=== PATIENT | male | born 1965 | race African-American/Black ===

== ENCOUNTER 2017-03-13 19:59 | Inpatient (IN) | payer SELFPAY ==
[~2017-03-13 19:59] MED LIST: ISOVUE-370 76%-LOCM 1 ML ONE
[2017-03-13 20:27] LABS: #Basophils 0.1 thou/uL (0.0-0.2); #Eosinphils 0.3 thou/uL (0.0-0.7); #Lymphocytes 1.8 thou/uL (1.20-3.40); #Monocytes 0.5 thou/uL (0.11-0.59); #Neutrophils 4.3 thou/uL (1.40-6.50); %Basophils 1.3 % (0.0-1.0); %Eosinophils 4.4 % (0.0-10.0); %Lymphocytes 25.5 % (21.0-51.0); %Neutrophils 61.8 % (42.0-75.0); Hemoglobin 14.4 g/dL (14.0-18.0); Mean Corpuscular Hemoglobin 29.1 pg (27.0-31.0); Mean Corpuscular Volume 90.9 fl (80.0-94.0); Mean Platelet Volume 8.8 fL (7.4-10.4); Platelet Count 212 thou/uL (130-400); RBC Distribution Width 13.2 % (11.5-14.5); Red Blood Cell (RBC) Count 4.95 mill/uL (4.70-6.10)
[2017-03-13 20:33] LABS: PTT 27.5 SEC (22.9-36.1); Prothrombin Time 13.6 SEC (12.0-14.7)
[2017-03-13 20:39] LABS: ALT (SGPT) 16 U/L (8-55); AST (SGOT) 26 U/L (5-34); Albumin 3.5 g/dL (3.5-5.0); Alkaline Phosphatase 90 U/L (40-150); Anion Gap 16 mmol/L (10-20); BUN (Urea Nitrogen) 16 mg/dL (8.9-20.6); Bilirubin, Total 0.3 mg/dL (0.2-1.2); Calc. Creatinine Clearance 0 mL/min (70-130); Carbon Dioxide 19 mmol/L (22-29); Chloride 103 mmol/L (98-107); Estimated GFR-MDRD 63; Globulin 3.6 g/dL (2.4-3.5); Glucose 211 mg/dL (70-105); Potassium 3.8 mmol/L (3.5-5.1); Protein, Total 7.1 g/dL (6.0-8.3); Sodium 134 mmol/L (136-145)
[2017-03-13 20:45] LABS: CKMB 6.7 ng/mL (0-6.6)
[2017-03-13 21:06] LABS: Magnesium 2.2 mg/dL (1.6-2.6)
[2017-03-13 21:20] LABS: Bilirubin Negative (Negative); Blood, Urine Moderate (Negative); Clarity CLEAR (Clear); Glucose, Urine (Dipstick) 500 mg/dL (Negative); Leukocyte Negative (Negative); Nitrite Negative (Negative); Protein, Urine (Dipstick) 300 mg/dL (Neg-Trace); Specific Gravity, Urine 1.026 (1.002-1.036); pH, Urine 6.5 (5.0-9.0)
[2017-03-13 21:22] LABS: Bacteria/HPF None Seen HPF (None Seen); Hyaline Casts/LPF 0-3 HYALINE CAST LPF (0-3 Hyaline); Pathc Cast-AUWi Flag 0.27 (0-2.49); Squamous Epithelial None Seen HPF (0-3); WBC/HPF 0-3 HPF (0-3)
--- NOTE | 2017-03-13 21:27 | RAD ---
PORTABLE CHEST 03/13/17 PROVIDED CLINICAL HISTORY: Chest pain. FINDINGS: No comparisons. Evaluation is limited by patient body habitus. The cardiac silhouette appears enlarge d. No focal consolidation, pleural fluid or pneumothorax apparent. IMPRESSION: Cardiomegaly without evidence for an acute cardiopulmonary process. POS: CET
[2017-03-13] MEDS ORDERED: Labetalol HCl 100 MG/20 ML VIAL ONE (21:28)
[2017-03-13 21:32] LABS: Amphetamine Not Detected (NotDetected); Barbiturates Screen Not Detected (NotDetected); Benzodiazepine Screen Not Detected (NotDetected); Cocaine Metabolite Screen Not Detected (NotDetected); Medtox Control Line Valid? VALID (VALID); Medtox Reader # READER 4; Methadone Not Detected (NotDetected); Methamphetamine Not Detected (NotDetected); Opiate Screen Not Detected (NotDetected); Oxycodone Screen Not Detected (NotDetected); Phencyclidine (PCP) Not Detected (NotDetected); THC/Cannabinoid Screen Not Detected (NotDetected); Tricyclic Screen Not Detected (NotDetected)
--- NOTE | 2017-03-13 21:50 | CT ---
CT BRAIN 03/13/17 PROVIDED CLINICAL HISTORY: Left sided facial droop and left sided weakness. FINDINGS: The ventricular system appears normal in size and morphology. There is no evidence for intracranial h emorrhage or mass effect. There is an areas of diminished attenuation involving the left cerebellar h emisphere just lateral of midline posteriorly which could reflect artifact related to beam hardening versus an area of age indeterminate ischemia. The extracranial soft tissues and osseous structures ap pear unremarkable. IMPRESSION: 1. No evidence for intracranial hemorrhage or mass effect. 2. Possible age indeterminate infarction involving the left cerebellar hemisphere. Findings were communicated to Dr. Flores via telephone at 8:13 p.m., 03/13/17. Code CR POS: CET
[2017-03-13] MEDS ORDERED: Fentanyl 100 MCG/2 ML VIAL ONE (21:55)
--- NOTE | 2017-03-13 22:43 | CT ---
CT ANGIOGRAM HEAD WITH IV CONTRAST AND PERFUSION WITH 3D MIP RECONSTRUCTIONS CT ANGIOGRAM OF THE NECK WITH IV CONTRAST WITH 3D MIP RECONSTRUCTIONS 03/13/17 FINDINGS: Evaluation is limited due to quantum model (image noise) related to patient body habitus through the upper aspects of the chest and great vessel origins. There is a common origin of the innominate and l eft common carotid arteries. The great vessels appear otherwise unremarkable. The vertebral arteries appear patent throughout their course. There is no evidence for a significant extracranial carotid st enosis. Atherosclerotic plaque is noted involving the petrous portions of the internal carotid arteri es bilaterally without evidence for a focal high grade stenosis. The anterior cerebral, posterior cer ebral, and middle cerebral arteries demonstrate a normal CT angiographic appearance, as does the basi lar artery. The left PICA artery appears diminutive and its distal aspects are difficult to visualize which could be on the basis of occlusion or its small size. The right PICA appears normally opacifie d. There is patchy diminished attenuation again seen involving a portion of the left cerebellar hemis phere compatible with age indeterminate infarction. The perfusion images are limited. There is no gross evidence for ischemia though the examination is e ssentially nondiagnostic for such. IMPRESSION: 1. Findings compatible with age indeterminate left PICA distribution infarction. Consider MRI if indicated. 2. No evidence for focal vessel stenosis, branch occlusion or aneurysm involving the intracrania l vessels and no evidence for significant internal carotid artery stenosis involving the extracranial portions of each internal carotid artery. 3. Nondiagnostic perfusion study. Findings are communicated to Dr. Flores in the Emergency Dep artment at 8?34 p.m., 03/13/17. Code CR POS: CET
[2017-03-13] MEDS ORDERED: Enoxaparin Sodium 100 MG/ML SYRINGE ONE (22:55)
[2017-03-13] MEDS ORDERED: Enoxaparin Sodium 40 MG/0.4 ML SYRINGE ONE (22:55)
[2017-03-13 23:57] LABS: Troponin I 0.286 ng/mL (< 0.028)
[2017-03-14] MEDS ORDERED: Ondansetron ODT 4 MG TAB SL PRN (00:46)
[2017-03-14] MEDS ORDERED: Ondansetron HCl/PF 4 MG/2 ML Vial IVP PRN (00:46)
[2017-03-14 01:33] VITALS: BMI 42.0
[2017-03-14 03:05] LABS: Troponin I 0.314 ng/mL (< 0.028)
[2017-03-14] MEDS: Aspirin 81 mg Enteric Coated Tablet PO SCH (08:50)
[2017-03-14] MEDS: Heparin 5,000 UNITS/ML VIAL SC SCH ×2 (08:50→20:37)
[2017-03-14 08:56] LABS: Troponin I 0.331 ng/mL (< 0.028)
[2017-03-14] MEDS ORDERED: FLU VACC QS2017-18 36 mo. & older 0.5 ML SYRINGE IM ONE ×2 (09:00→21:00)
[2017-03-14] MEDS ORDERED: Nitroglycerin 0.4 MG TAB (25 Tab Bottle) PO PRN (09:55)
[2017-03-14] MEDS ORDERED: Morphine 5 mg/5 ml in 0.9% NaCl/PF SYRINGE SLOW IVP PRN (09:56)
[2017-03-14] MEDS: Morphine 5 MG/ML SYRINGE SLOW IVP PRN ×2 (11:34→18:19)
[2017-03-14] MEDS ORDERED: hydrALAZINE 20 MG/ML VIAL SLOW IVP PRN (13:10)
[2017-03-14 14:43] LABS: Troponin I 0.271 ng/mL (< 0.028)
--- NOTE | 2017-03-14 19:24 | HP ---
PRIMARY CARE PHYSICIAN: None. PRESENTING COMPLAINT: Left-sided weakness. HISTORY OF PRESENT ILLNESS: A 51-year-old male with an unclear medical history who presented to the emergency room with a 1 day history of left-sided weakness. Patient reports symptoms started yesterd ay around 7:00 p.m. after he drank 24 hours, can of beer and he noticed he was unable to move his lef t side properly resulting in a fall. He also noticed some slurred speech, but denies any loss of con sciousness or facial droop. He has not had similar episodes in the past. In addition, he has had in termittent chest pain for the past 3-4 days, described as a pressure-like, substernal, radiating to t he left shoulder. He denies palpitations, nausea or vomiting, but admits to some shortness of breath . PAST SURGICAL HISTORY: None. HOME MEDICATIONS: None. ALLERGIES: No known drug allergies. FAMILY HISTORY: No family history of sudden cardiac , heart disease. SOCIAL HISTORY: He denies smoking and drinks alcohol occasionally. REVIEW OF SYSTEMS: HEENT: Negative. RESPIRATORY: Positive shortness of breath. Negative for cough, sputum production, nasal congestion. CARDIOVASCULAR: Per HPI. ABDOMEN: Negative. GENITOURINARY: Denies dysuria, urgency, hematuria or frequency. HEMATOLOGY: Negative. SKIN: Denies rashes. NEUROLOGY: Per HPI. PSYCHIATRIC: Denies depressed mood, suicidal or homicidal ideations. PHYSICAL EXAMINATION: VITAL SIGNS: Blood pressure 188/127, pulse 110, respirations 22, temperature 98.9 degree Fahrenheit. HEENT: Not in acute distress. RESPIRATORY: Chest, clear to auscultation bilaterally. No wheezes or rales. CARDIOVASCULAR: S1 and S2 only. Regular rate and rhythm. No murmurs, rubs, or gallops. ABDOMEN: Bowel sounds present. No tenderness to palpation. MUSCULOSKELETAL: Strength 4/5 on the left upper and lower extremities; 5/5 on the right extremities. NEUROLOGIC: Alert and well oriented. No facial droop, decreased tone left extremities with pronator drift. A 4/5 strength in left upper and lower extremities; 5/5 in the right extremities. SKIN: No rashes. LABORATORY DATA: Troponin 0.286 on arrival, increasing to 0.331 and down trended to 0.271. BNP 403. 9, magnesium 2.2. CBC unremarkable. CMP largely unremarkable. IMAGING: Chest x-ray showed cardiomegaly without evidence of acute cardiopulmonary process. CTA ang iography: Findings compatible with age indeterminate left PICA distribution infarction. No evidence of focal vessel stenosis, occlusion, or aneurysm. Brain CT: No evidence of intracranial hemorrhage or mass effect. Possible age indeterminate infarction involving left cerebellar hemisphere. EKG, n o signs of acute ischemia. ASSESSMENT AND PLAN: 1. Left hemiparesis/acute ischemic stroke. The patient presented with left hemiparesis with primary concern being for an acute ischemic stroke. Last known normal was over 12 hours ago, so outside the window for possible TPA. We will allow for permissive hypertension, regular neuro checks, get a lip id profile, TSH, ESR and CRP. 2. I will also consult Neurology and allow for permissive hypertension. 3. Type 2 non-ST elevation myocardial infarction: He initially presented with chest pain and elevat ed troponin, but now trending downwards. Therefore, I will not start anticoagulation, but monitor tr oponin. We will also place p.r.n. nitroglycerin sublingually and IV morphine for chest pain. Cardio logy will be consulted and he will be monitored on telemetry. 4. Code status: FULL CODE. In addition, for his ischemic stroke, the patient will be placed on daily aspirin, as well as statin; also with p.r.n. labetalol for diastolic blood pressure greater than 120. The Stroke team will also be consulted and he will be placed on PT/OT evaluation/treatment as well as a TTE.
[2017-03-14] MEDS: Atorvastatin Calcium 40 MG TAB PO SCH (20:37)
[2017-03-14 21:14] LABS: Troponin I 0.308 ng/mL (< 0.028)
[2017-03-14] MEDS ORDERED: Acetaminophen 500 MG TAB PO SCH (21:45)
[2017-03-14] MEDS: Labetalol HCl 100 MG/20 ML VIAL SLOW IVP PRN (21:58)
--- NOTE | 2017-03-15 00:40 | CON ---
DATE OF CONSULTATION: 03/14/2017 REFERRING PHYSICIAN: Dr. Anita Elias. REASON FOR CONSULTATION: Left-sided weakness. HISTORY OF PRESENT ILLNESS: Mr. Bolden is a pleasant 51-year-old -[place] male who has bee n concerned for evaluation of left-sided weakness. History is obtained from patient, who is a good h istorian. He reports that on Sunday afternoon, he noticed the numbness and tingling sensation in lef t lower extremity. Then few hours later, he started noticing numbness and tingling in the left upper extremity. He also noticed that he was having difficulty with the lifting his leg. On next day, he noticed that he was having difficulty with lifting his arm. He was having difficulty with walking. He was also having somewhat slurred speech and blurred vision, which prompted him to present to the [facility] on today, as his symptoms were not improving. He reports that his symptoms are somewhat better compared to yesterday. He denies any headache, chest pain, palpitation, nausea, vomiting, fever, or chills. PAST MEDICAL HISTORY: Significant for hypertension, history of stroke. PAST SURGICAL HISTORY: None. SOCIAL HISTORY: He denies smoking. He does drink alcohol on occasions. He denies illicit drug use. CURRENT MEDICATIONS: Please review MAR. ALLERGIES: No known drug allergies. FAMILY HISTORY: Noncontributory. REVIEW OF SYSTEMS: As mentioned in the HPI, otherwise negative. PHYSICAL EXAMINATION: VITAL SIGNS: Blood pressure 193/127, pulse of 106, temperature of 98.9, respirations of 16, O2 sats of 97% on room air. GENERAL: Well-developed, well-nourished -[place] male in no apparent distress. RESPIRATORY: Clear to auscultation bilaterally. CARDIOVASCULAR: Regular rate and rhythm. NEUROLOGIC: Mental status: Patient is awake, alert, oriented x3. Speech and language mildly dysart hric speech. Cranial nerves: Pupils are 3 mm and reactive. Visual crandall are intact. Extraocular muscles movements are intact. No nystagmus is noted. Face appears symmetric. Tongue and uvula are midline. Motor exam showed normal tone and bulk with 5/5 strength in right upper and right lower ext remities. His strength in the left upper and left lower extremities is 4/5. He does have a pronator drift on the left upper extremity. Sensory: Sensation appears intact. Deep tendon reflexes 1+ ref justin in both upper and lower extremities. Babinski: Plantar responses flexion bilaterally. Coordina tion intact to [id number] tapping bilaterally. LABORATORY DATA: Reviewed, which included CBC, CMP, troponin, BNP, urinalysis, and urine drug screen with plasma alcohol level, which is significant for sodium of 134, troponin of 0.26 on admission. C K-MB of 6.7, glucose of 211. Serum plasma alcohol level was 100. IMAGING STUDIES: CT head without contrast was reviewed, which showed hypodensity involving the left posterior cerebellar region suggestive of subacute infarct. IMPRESSION: 1. Subacute left cerebellar ischemic infarct. 2. Malignant hypertension. 3. Alcohol abuse. ASSESSMENT AND PLAN: Mr. Bolden is a pleasant 51-year-old -[place] male who presented with left-sided weakness and slurred speech. On exam, he does have mild dysarthria along with left-sided weakness. His CT scan does show hypodensity in the left cerebellar region. At this time, I will re commend obtaining MRI brain without contrast. I would recommend starting on aspirin 325 mg daily for secondary stroke prevention. He will also benefit from Lipitor 40 mg at bedtime. Continue PT, OT, speech therapy. Thank you for your consultation.
[2017-03-15 05:59] LABS: #Eosinphils 0.3 thou/uL (0.0-0.7); #Lymphocytes 1.6 thou/uL (1.20-3.40); #Monocytes 0.5 thou/uL (0.11-0.59); #Neutrophils 3.2 thou/uL (1.40-6.50); %Basophils 0.7 % (0.0-1.0); %Eosinophils 5.9 % (0.0-10.0); %Lymphocytes 28.2 % (21.0-51.0); %Monocytes 8.6 % (0.0-10.0); %Neutrophils 56.6 % (42.0-75.0); Hemoglobin 13.9 g/dL (14.0-18.0); Mean Corpuscular HGB CONC 32.5 g/dL (32.0-36.0); Mean Corpuscular Hemoglobin 29.3 pg (27.0-31.0); Mean Corpuscular Volume 89.9 fl (80.0-94.0); Mean Platelet Volume 9.2 fL (7.4-10.4); Platelet Count 203 thou/uL (130-400); RBC Distribution Width 13.3 % (11.5-14.5); Red Blood Cell (RBC) Count 4.76 mill/uL (4.70-6.10); White Blood Cell (WBC) Count 5.6 thou/uL (4.8-10.8)
[2017-03-15 06:01] LABS: PTT 31.2 SEC (22.9-36.1); Prothrombin Time 13.5 SEC (12.0-14.7)
[2017-03-15 06:06] LABS: Anion Gap 14 mmol/L (10-20); BUN (Urea Nitrogen) 15 mg/dL (8.9-20.6); Calc. Creatinine Clearance 140 mL/min (70-130); Calcium 9.2 mg/dL (7.8-10.44); Carbon Dioxide 23 mmol/L (22-29); Cardiac Risk 7.7 (Less than 4.5); Chloride 104 mmol/L (98-107); Cholesterol 253 mg/dl (< 200 Desired); Estimated GFR-MDRD 76; Glucose 217 mg/dL (70-105); HDL Cholesterol 33 mg/dL (>60 Neg Risk); LDL Cholesterol, Calculated 184 mg/dL; Potassium 3.8 mmol/L (3.5-5.1); Sodium 137 mmol/L (136-145); Triglycerides 180 mg/dL (Less than 150)
--- NOTE | 2017-03-15 07:39 | CON ---
DATE OF CONSULTATION: 03/14/2017 REASON FOR CONSULTATION: Elevated troponin. PRIMARY PROVIDER: Dr. Jimy Brunner HISTORY OF PRESENT ILLNESS: This is a 51-year-old gentleman who I have seen and evaluated in the [facility]. He underwent coronary angiography last year and was not found to have significant flow-limiting d isease. He had ectatic vessel. He recently presented with left-sided weakness and speech impediment . He was diagnosed with a CVA. His blood pressure was markedly elevated with poor control. PAST MEDICAL HISTORY: Hypertension, mild CAD. ALLERGIES: None. HOME MEDICATIONS: None. SOCIAL HISTORY: No current tobacco or alcohol use. REVIEW OF SYSTEMS: Ten point review of systems is reviewed and as above, otherwise negative. PHYSICAL EXAMINATION: VITAL SIGNS: Blood pressure 162/101, pulse 80, temperature 98.5. GENERAL: Patient is a pleasant male who is in no acute distress. The patient appears his stated age. NEUROLOGIC: Left-sided weakness and mild speech impediment. HEENT: Sclerae without icterus. Mouth has moist mucous membranes with normal pallor. NECK: No JVD. Carotid upstroke brisk. No bruits bilaterally. LUNGS: Clear to auscultation with unlabored respirations. BACK: No scoliosis or kyphosis. CARDIAC: Regular rate and rhythm with normal S1 and S2. No S3 or S4 noted. No significant rubs, mur murs, thrills, or gallops noted throughout the precordium. PMI is not displaced. There is no parast ernal heave. ABDOMEN: Soft, nontender, nondistended. No peritoneal signs present. No hepatosplenomegaly. No abn ormal striae. EXTREMITIES: 2+ femoral and 2+ dorsalis pedis pulses. No cyanosis, clubbing, or edema. SKIN: No gross abnormalities. PERTINENT LABS: Hemoglobin 13.9. Peak troponin 0.3, creatinine 1.2. IMPRESSION: 1. Elevated troponin. 2. Recent cerebrovascular accident. 3. Mild coronary artery disease. RECOMMENDATIONS: Elevated troponin secondary to recent a CVA. Would recommend conservative approach . Would recommend aggressive blood pressure management. This is likely the cause of his recent CVA. His current echo is not available. Mr. Bolden has 2 charts with echo findings dated 02/29/2016 w ith normal LVEF. Otherwise I have no further recommendations.
[2017-03-15] MEDS: Heparin 5,000 UNITS/ML VIAL SC SCH ×2 (08:49→20:47)
[2017-03-15] MEDS: Aspirin 81 mg Enteric Coated Tablet PO SCH (08:50)
[2017-03-15] MEDS ORDERED: Amlodipine 5 MG TAB PO SCH (09:00)
[2017-03-15] MEDS: Acetaminophen 325 MG TAB PO PRN ×2 (10:07→17:34)
[2017-03-15] MEDS: Labetalol HCl 100 MG/20 ML VIAL SLOW IVP PRN ×2 (10:07→15:15)
--- NOTE | 2017-03-15 10:16 | MRI ---
MRI BRAIN NONCONTRAST: DATE: 03/15/17 HISTORY: 51-year-old male with left upper extremity weakness and left-sided facial droop. Stroke symptoms. COMPARISON: None. FINDINGS: There is an approximately 2 x 1 cm patchy region of T2 hyperintensity and strongly restricted diffusi on at the right upper caitlin, representing an acute or subacute infarction. All images are degraded by patient motion. Ventricles are normal in size and configuration. No evidence of acute supratentorial, cerebral infarction. Ventricles are normal in size and configuration. There is a moderate size wedge -shaped focus of encephalomalacia and gliosis in the inferior aspect of the left cerebellar hemispher e, consistent with a nonacute left PICA territory infarction. No evidence of recent intra-axial hemor rhage. The chronic ischemic white matter changes are mild. IMPRESSION: 1. An acute or subacute infarction of the right upper caitlin. 2. Nonacute infarction in the left cerebellum, in the left PICA (posterior-inferior cerebellar arter y) territory. CODE TTereso Alcocer POS: VERONICA
[2017-03-15] MEDS ORDERED: Dextrose 5% in Water 1,000 ML IV PRN (11:15)
[2017-03-15] MEDS ORDERED: Dextrose 50% Abboject 50 ML SYRINGE SLOW IVP PRN (11:15)
[2017-03-15] MEDS ORDERED: Lisinopril 20 MG TAB PO SCH (11:45)
--- NOTE | 2017-03-15 13:31 | PDOC.PN ---
- Subjective Encounter Start Date: 03/15/17 Encounter Start Time: 13:30 Subjective: no complaints today. Denies headaches or blurry vision - Objective Resuscitation Status: Resuscitation Status FULL:Full Resuscitation MAR Reviewed: Yes Vital Signs & Weight: Vital Signs (12 hours) Temp Pulse Pulse Pulse Resp BP BP 03/15/17 12:17 164/115 H 03/15/17 11:50 98.3 F 86 18 03/15/17 10:07 65 192/122 H 03/15/17 09:04 93 99 189/117 H 03/15/17 08:50 65 166/101 H 03/15/17 08:00 98.4 F 65 18 03/15/17 03:00 98.4 F 65 16 BP BP Pulse Ox 03/15/17 12:17 03/15/17 11:50 164/115 H 98 03/15/17 10:07 03/15/17 09:04 199/126 H 03/15/17 08:50 03/15/17 08:00 166/101 H 03/15/17 03:00 158/105 H 92 L Weight Admit Weight 301 lb 3 oz Weight 301 lb 3 oz I&O: 03/14/17 03/15/17 03/16/17 06:59 06:59 06:59 Intake Total 960 Output Total 500 Balance 460 Result Diagrams: 03/15/17 05:34 03/15/17 05:34 Phys Exam - Physical Examination HEENT: PERRLA, moist MMs, sclera anicteric Neck: supple, full ROM Respiratory: no wheezing, no rales, no rhonchi, clear to auscultation bilateral Cardiovascular: RRR, no significant murmur, no rub Gastrointestinal: soft, non-tender, no distention, positive bowel sounds Musculoskeletal: no edema Neurological: moves all 4 limbs left hemiparesis upper and lower extremities. Psychiatric: normal affect, A&O x 3 Skin: no rash Dx/Plan (1) Acute ischemic stroke Code(s): I63.9 - CEREBRAL INFARCTION, UNSPECIFIED Status: Acute Comment: Cerebellar as seen on CT brain. MRI ordered. Constinue ASA and Statin, PT/OT (2) CAD (coronary artery disease) Code(s): I25.10 - ATHSCL HEART DISEASE OF [place] CORONARY ARTERY W/O ANG PCTRS Status: Acute Qualifiers: Coronary Disease-Associated Artery/Lesion type: unspecified vessel or lesion type [place] vs. transplanted heart: [place] heart Associated angina: without angina Qualified Code(s): I25.10 - Atherosclerotic heart disease of [place] coronary artery without angina pectoris Comment: Stable, chest pain free. (3) HLD (hyperlipidemia) Code(s): E78.5 - HYPERLIPIDEMIA, UNSPECIFIED Status: Acute Qualifiers: Hyperlipidemia type: mixed hyperlipidemia Qualified Code(s): E78.2 - Mixed hyperlipidemia Comment: Started on Statins (4) HTN (hypertension) Code(s): I10 - ESSENTIAL (PRIMARY) HYPERTENSION Status: Acute Qualifiers: Hypertension type: essential hypertension Qualified Code(s): I10 - Essential (primary) hypertension Comment: Improving. Started on amlodipine and Lisinopril. PRN hydralazine for SBP > 180 (5) Type 2 diabetes mellitus with hyperglycemia Code(s): E11.65 - TYPE 2 DIABETES MELLITUS WITH HYPERGLYCEMIA Status: Acute Qualifiers: Diabetes mellitus fpc insulin use: with fpc use Qualified Code( s): E11.65 - Type 2 diabetes mellitus with hyperglycemia; Z79.4 - intermediate frame tender ( current) use of insulin; Z79.4 - intermediate frame tender (current) use of insulin; Z79.4 - skilled nursing (current) use of insulin; Z79.4 - skilled nursing (current) use of insulin Comment: Reports bein on PO meds and insulin in past but not compliant. Obtain HbA1c, start metformin and basal insulin. Diabetic diet. (6) Non-ST elevation myocardial infarction (NSTEMI), type 2 Code(s): I21.A1 - MYOCARDIAL INFARCTION TYPE 2 Status: Acute Plan: Continue current management. Comment: Likely demand ischemia 2/2 elevated BP. cards on board. Will manage conservatively. - Plan cont current plan of care, PT/OT * .
[2017-03-15] MEDS ORDERED: hydrALAZINE 20 MG/ML VIAL SLOW IVP PRN (13:37)
--- NOTE | 2017-03-15 16:31 | CON ---
DATE OF CONSULTATION: 03/15/2017 Mr. Bolden is doing well. He states he has continued to regain strength in his left extremity. No current chest pain noted. PHYSICAL EXAMINATION: GENERAL: Patient is a pleasant male who is in no acute distress. The patient appears his stated age . VITAL SIGNS: Blood pressure 157/96, pulse 93, temperature 98. NEUROLOGIC: The patient is alert and oriented times 3 with no focal neurologic deficits. HEENT: Sclerae without icterus. Mouth has moist mucous membranes with normal pallor. NECK: No JVD. Carotid upstroke brisk. No bruits bilaterally. LUNGS: Clear to auscultation with unlabored respirations. BACK: No scoliosis or kyphosis. CARDIAC: Regular rate and rhythm with normal S1 and S2. No S3 or S4 noted. No significant rubs, murmurs, thrills, or gallops noted throughout the precordium. PMI is not displaced. There is no parasternal heave. ABDOMEN: Soft, nontender, nondistended. No peritoneal signs present. No hepatosplenomegaly. No abnormal striae. EXTREMITIES: 2+ femoral and 2+ dorsalis pedis pulses. No cyanosis, clubbing, or edema. SKIN: No gross abnormalities. PERTINENT LABORATORY DATA: Hemoglobin 42.8, creatinine 1.22. IMPRESSION: 1. Elevated troponin. 2. Recent cerebrovascular accident. 3. Hypertension. RECOMMENDATIONS: Amlodipine has been increased by the primary team. Continue aspirin and atorvastat in. Lisinopril has also been started. From a cardiovascular standpoint, I have no further recommend ations. Again, he has mild coronary artery disease on recent angio. Please reconsult if any further questions arise.
[2017-03-15] MEDS: metFORMIN 500 MG TAB PO SCH (17:30)
[2017-03-15] MEDS: HumaLOG 300 UNITS/3 ML VIAL SC PRN (17:30)
[2017-03-15] MEDS: Atorvastatin Calcium 40 MG TAB PO SCH (20:44)
[2017-03-15] MEDS: Lisinopril 20 MG TAB PO SCH (20:46)
[2017-03-15] MEDS: Insulin Detemir 100 UNITS/ML 15 UNITS in Admixture Fee 1 EACH SC SCH (20:58)
[2017-03-15] MEDS ORDERED: Ketorolac Tromethamine 30 MG/ML VIAL IVP SCH (22:45)
[2017-03-15 23:55] LABS: Troponin I 0.296 ng/mL (< 0.028)
[2017-03-16] MEDS: Acetaminophen 325 MG TAB PO PRN ×4 (03:47→22:40)
[2017-03-16 05:34] LABS: Hemoglobin A1c 9.8 % (4.0-6.0)
[2017-03-16 05:51] LABS: Troponin I 0.261 ng/mL (< 0.028)
[2017-03-16] MEDS: metFORMIN 500 MG TAB PO SCH ×2 (08:13→17:04)
[2017-03-16] MEDS: Aspirin 81 mg Enteric Coated Tablet PO SCH (08:13)
[2017-03-16] MEDS: Heparin 5,000 UNITS/ML VIAL SC SCH ×2 (08:13→21:45)
[2017-03-16] MEDS: Lisinopril 20 MG TAB PO SCH ×2 (08:13→21:45)
[2017-03-16] MEDS: Amlodipine 10 MG TAB PO SCH (08:14)
[2017-03-16] MEDS ORDERED: Hydrochlorothiazide 25 MG TAB PO SCH (09:00)
--- NOTE | 2017-03-16 11:41 | PDOC.PN ---
- Subjective Encounter Start Date: 03/16/17 Encounter Start Time: 11:40 Subjective: Patient c/o slight headache. Has been participating in PT/OT No acute events overnight. - Objective Resuscitation Status: Resuscitation Status FULL:Full Resuscitation MAR Reviewed: Yes Vital Signs & Weight: Vital Signs (12 hours) Temp Pulse Resp BP Pulse Ox 03/16/17 08:14 88 03/16/17 08:00 98.0 F 88 18 161/101 H 98 03/16/17 04:00 98.2 F 88 18 172/106 H 97 03/16/17 00:00 98.1 F 95 16 153/88 H 96 Weight Admit Weight 301 lb 3 oz Weight 301 lb 3 oz Result Diagrams: 03/15/17 05:34 03/15/17 05:34 Additional Labs: Accuchecks 03/16/17 03/16/17 03/15/17 11:11 05:52 21:02 POC Glucose 142 H 162 H 206 H 03/15/17 17:04 POC Glucose 209 H Phys Exam - Physical Examination Constitutional: NAD HEENT: PERRLA, moist MMs, sclera anicteric Neck: supple, full ROM Respiratory: no wheezing, no rales, no rhonchi, clear to auscultation bilateral Cardiovascular: RRR, no significant murmur, no rub Gastrointestinal: soft, non-tender, no distention, positive bowel sounds Musculoskeletal: no edema, pulses present Neurological: non-focal, moves all 4 limbs Psychiatric: normal affect, A&O x 3 Dx/Plan (1) Acute ischemic stroke Code(s): I63.9 - CEREBRAL INFARCTION, UNSPECIFIED Status: Acute Plan: Continue ASA and Statin, PT/OT. Comment: Cerebellar as seen on CT brain. MRI showed upper caitlin infarct (acute v subacute). Continue ASA and Statin, PT/OT. (2) CAD (coronary artery disease) Code(s): I25.10 - ATHSCL HEART DISEASE OF [place] CORONARY ARTERY W/O ANG PCTRS Status: Acute Qualifiers: Coronary Disease-Associated Artery/Lesion type: unspecified vessel or lesion type [place] vs. transplanted heart: [place] heart Associated angina: without angina Qualified Code(s): I25.10 - Atherosclerotic heart disease of [place] coronary artery without angina pectoris Plan: Ensure adequate BP control. Comment: Stable, chest pain free. Will start low dose metoprolol (3) HLD (hyperlipidemia) Code(s): E78.5 - HYPERLIPIDEMIA, UNSPECIFIED Status: Acute Qualifiers: Hyperlipidemia type: mixed hyperlipidemia Qualified Code(s): E78.2 - Mixed hyperlipidemia Comment: Started on Statins (4) HTN (hypertension) Code(s): I10 - ESSENTIAL (PRIMARY) HYPERTENSION Status: Acute Qualifiers: Hypertension type: essential hypertension Qualified Code(s): I10 - Essential (primary) hypertension Comment: Improving. Started on amlodipine and Lisinopril. Started metoprolol 03/16 PRN hydralazine for SBP > 180 (5) Type 2 diabetes mellitus with hyperglycemia Code(s): E11.65 - TYPE 2 DIABETES MELLITUS WITH HYPERGLYCEMIA Status: Acute Qualifiers: Diabetes mellitus parts counterman insulin use: with parts counterman use Qualified Code( s): E11.65 - Type 2 diabetes mellitus with hyperglycemia; Z79.4 - termite helper ( current) use of insulin; Z79.4 - termite helper (current) use of insulin; Z79.4 - detention (current) use of insulin; Z79.4 - termite helper (current) use of insulin Plan: Improving. Monitor. Comment: Reports bein on PO meds and insulin in past but not compliant. Obtain HbA1c, start metformin and basal insulin. Diabetic diet. (6) Non-ST elevation myocardial infarction (NSTEMI), type 2 Code(s): I21.A1 - MYOCARDIAL INFARCTION TYPE 2 Status: Acute Plan: Chest pain free. Comment: Likely demand ischemia 2/2 elevated BP. cards on board. Will manage conservatively. - Plan cont current plan of care, PT/OT, out of bed/ambulate, DVT proph w/heparin * .
[2017-03-16] MEDS: HumaLOG 300 UNITS/3 ML VIAL SC PRN (18:37)
[2017-03-16] MEDS: Atorvastatin Calcium 40 MG TAB PO SCH (21:45)
[2017-03-16] MEDS: Insulin Detemir 100 UNITS/ML 15 UNITS in Admixture Fee 1 EACH SC SCH (21:45)
[2017-03-16] MEDS ORDERED: Melatonin 3 MG TAB PO SCH (23:15)
[2017-03-16] MEDS ORDERED: Acetaminophen/Codeine 30-300mg Tablet PO SCH (23:15)
[2017-03-17 05:37] LABS: #Eosinphils 0.3 thou/uL (0.0-0.7); #Lymphocytes 1.3 thou/uL (1.20-3.40); #Monocytes 0.6 thou/uL (0.11-0.59); #Neutrophils 2.6 thou/uL (1.40-6.50); %Basophils 0.3 % (0.0-1.0); %Lymphocytes 26.8 % (21.0-51.0); %Monocytes 12.4 % (0.0-10.0); %Neutrophils 54.5 % (42.0-75.0); Hemoglobin 13.5 g/dL (14.0-18.0); Mean Corpuscular HGB CONC 31.6 g/dL (32.0-36.0); Mean Corpuscular Hemoglobin 28.5 pg (27.0-31.0); Mean Corpuscular Volume 90.2 fl (80.0-94.0); Mean Platelet Volume 8.7 fL (7.4-10.4); Platelet Count 199 thou/uL (130-400); RBC Distribution Width 13.3 % (11.5-14.5); Red Blood Cell (RBC) Count 4.73 mill/uL (4.70-6.10); White Blood Cell (WBC) Count 4.9 thou/uL (4.8-10.8)
[2017-03-17 05:51] LABS: Anion Gap 12 mmol/L (10-20); BUN (Urea Nitrogen) 18 mg/dL (8.9-20.6); Calc. Creatinine Clearance 131 mL/min (70-130); Calcium 9.5 mg/dL (7.8-10.44); Carbon Dioxide 25 mmol/L (22-29); Chloride 107 mmol/L (98-107); Estimated GFR-MDRD 71; Glucose 117 mg/dL (70-105); Potassium 3.6 mmol/L (3.5-5.1); Sodium 140 mmol/L (136-145)
[2017-03-17] MEDS: Lisinopril 20 MG TAB PO SCH ×2 (08:20→20:26)
[2017-03-17] MEDS: Amlodipine 10 MG TAB PO SCH (08:21)
[2017-03-17] MEDS: Aspirin 81 mg Enteric Coated Tablet PO SCH (08:21)
[2017-03-17] MEDS: Heparin 5,000 UNITS/ML VIAL SC SCH ×2 (08:21→20:27)
[2017-03-17] MEDS: metFORMIN 500 MG TAB PO SCH ×2 (09:17→17:31)
--- NOTE | 2017-03-17 10:33 | PDOC.PN ---
- Subjective Encounter Start Date: 03/17/17 Encounter Start Time: 10:31 Subjective: No complaints. States he is doing muvh better with therapy. No acute events overnight. - Objective Resuscitation Status: Resuscitation Status FULL:Full Resuscitation MAR Reviewed: Yes Vital Signs & Weight: Vital Signs (12 hours) Temp Pulse Pulse Pulse Resp BP BP 03/17/17 08:40 115 H 97 187/109 H 03/17/17 08:21 92 164/99 H 03/17/17 08:20 164/99 H 03/17/17 08:00 98.1 F 92 18 03/17/17 07:05 98.1 F 92 18 03/17/17 04:00 97.8 F 89 20 03/17/17 00:00 98.3 F 100 20 BP BP Pulse Ox 03/17/17 08:40 149/86 H 03/17/17 08:21 03/17/17 08:20 03/17/17 08:00 03/17/17 07:05 164/99 H 96 03/17/17 04:00 159/99 H 96 03/17/17 00:00 144/94 H 98 Weight Admit Weight 301 lb 3 oz Weight 301 lb 3 oz I&O: 03/16/17 03/17/17 03/18/17 06:59 06:59 06:59 Intake Total 558 Output Total 320 Balance 238 Result Diagrams: 03/17/17 05:06 03/17/17 05:06 Additional Labs: Accuchecks 03/17/17 03/16/17 03/16/17 05:39 20:28 17:13 POC Glucose 102 171 H 170 H 03/16/17 11:11 POC Glucose 142 H Phys Exam - Physical Examination Constitutional: NAD HEENT: PERRLA, moist MMs, sclera anicteric Neck: supple, full ROM Respiratory: no wheezing, no rales, no rhonchi, clear to auscultation bilateral Cardiovascular: RRR, no significant murmur, no rub Gastrointestinal: soft, non-tender, no distention, positive bowel sounds Musculoskeletal: no edema, pulses present Neurological: non-focal, moves all 4 limbs Strength 4/5 Psychiatric: normal affect, A&O x 3 Skin: no rash, normal turgor Dx/Plan (1) Acute ischemic stroke Code(s): I63.9 - CEREBRAL INFARCTION, UNSPECIFIED Status: Acute Plan: Continue mx Comment: Cerebellar as seen on CT brain. MRI showed upper caitlin infarct (acute v subacute). Continue ASA and Statin, PT/OT. (2) CAD (coronary artery disease) Code(s): I25.10 - ATHSCL HEART DISEASE OF [place] CORONARY ARTERY W/O ANG PCTRS Status: Acute Qualifiers: Coronary Disease-Associated Artery/Lesion type: unspecified vessel or lesion type [place] vs. transplanted heart: [place] heart Associated angina: without angina Qualified Code(s): I25.10 - Atherosclerotic heart disease of [place] coronary artery without angina pectoris Plan: Chest pain free. Comment: Stable, chest pain free. ON metoprolol, ASA and statins (3) HLD (hyperlipidemia) Code(s): E78.5 - HYPERLIPIDEMIA, UNSPECIFIED Status: Acute Qualifiers: Hyperlipidemia type: mixed hyperlipidemia Qualified Code(s): E78.2 - Mixed hyperlipidemia Plan: Continue mx Comment: Continue Statins (4) HTN (hypertension) Code(s): I10 - ESSENTIAL (PRIMARY) HYPERTENSION Status: Acute Qualifiers: Hypertension type: essential hypertension Qualified Code(s): I10 - Essential (primary) hypertension Plan: Continue mx Comment: Improving. Started on amlodipine and Lisinopril. Started metoprolol 03/16 PRN hydralazine for SBP > 180 (5) Type 2 diabetes mellitus with hyperglycemia Code(s): E11.65 - TYPE 2 DIABETES MELLITUS WITH HYPERGLYCEMIA Status: Acute Qualifiers: Diabetes mellitus moth exterminator insulin use: with moth exterminator use Qualified Code( s): E11.65 - Type 2 diabetes mellitus with hyperglycemia; Z79.4 - retirement ( current) use of insulin; Z79.4 - moth exterminator (current) use of insulin; Z79.4 - moth exterminator (current) use of insulin; Z79.4 - retirement (current) use of insulin Plan: Improving. Continue insulin, metformin. Comment: Reports being on PO meds and insulin in past but not compliant. HbA1c 9.8, started on metformin and basal insulin. Diabetic diet. (6) Non-ST elevation myocardial infarction (NSTEMI), type 2 Code(s): I21.A1 - MYOCARDIAL INFARCTION TYPE 2 Status: Resolved Comment: demand ischemia 2/2 elevated BP. - Plan cont current plan of care, plan discussed w/ family, PT/OT, social security specialist Will Discharge to [facility] bed being scouted. * .
[2017-03-17] MEDS: Acetaminophen 325 MG TAB PO PRN (12:31)
[2017-03-17] MEDS ORDERED: Meclizine HCl 25 MG TAB PO PRN (15:10)
[2017-03-17] MEDS: Melatonin 3 MG TAB PO PRN (20:26)
[2017-03-17] MEDS: Atorvastatin Calcium 40 MG TAB PO SCH (20:26)
[2017-03-17] MEDS: Insulin Detemir 100 UNITS/ML 15 UNITS in Admixture Fee 1 EACH SC SCH (20:27)
[2017-03-18 05:30] LABS: #Basophils 0.1 thou/uL (0.0-0.2); #Eosinphils 0.3 thou/uL (0.0-0.7); #Lymphocytes 1.3 thou/uL (1.20-3.40); #Monocytes 0.7 thou/uL (0.11-0.59); #Neutrophils 3.2 thou/uL (1.40-6.50); %Eosinophils 5.7 % (0.0-10.0); %Lymphocytes 23.1 % (21.0-51.0); %Monocytes 11.7 % (0.0-10.0); %Neutrophils 58.5 % (42.0-75.0); Hemoglobin 13.6 g/dL (14.0-18.0); Mean Corpuscular HGB CONC 32.2 g/dL (32.0-36.0); Mean Corpuscular Hemoglobin 29.1 pg (27.0-31.0); Mean Corpuscular Volume 90.6 fl (80.0-94.0); Mean Platelet Volume 8.6 fL (7.4-10.4); Platelet Count 191 thou/uL (130-400); RBC Distribution Width 13.1 % (11.5-14.5); Red Blood Cell (RBC) Count 4.67 mill/uL (4.70-6.10); White Blood Cell (WBC) Count 5.5 thou/uL (4.8-10.8)
[2017-03-18 05:52] LABS: Anion Gap 12 mmol/L (10-20); BUN (Urea Nitrogen) 16 mg/dL (8.9-20.6); Calc. Creatinine Clearance 139 mL/min (70-130); Calcium 9.7 mg/dL (7.8-10.44); Carbon Dioxide 25 mmol/L (22-29); Chloride 106 mmol/L (98-107); Estimated GFR-MDRD 75; Glucose 112 mg/dL (70-105); Potassium 3.7 mmol/L (3.5-5.1); Sodium 139 mmol/L (136-145)
[2017-03-18] MEDS: Potassium Chloride 20 MEQ TAB PO SCH (08:56)
[2017-03-18] MEDS: Amlodipine 10 MG TAB PO SCH (08:57)
[2017-03-18] MEDS: Aspirin 81 mg Enteric Coated Tablet PO SCH (08:58)
[2017-03-18] MEDS: metFORMIN 500 MG TAB PO SCH ×2 (09:01→17:49)
[2017-03-18] MEDS: Heparin 5,000 UNITS/ML VIAL SC SCH ×2 (09:02→21:20)
[2017-03-18] MEDS: Acetaminophen 325 MG TAB PO PRN (09:10)
--- NOTE | 2017-03-18 12:02 | PDOC.PN ---
- Subjective Encounter Start Date: 03/18/17 Encounter Start Time: 12:00 Subjective: No new complaints -: Participating in PT and doing well -: No acute overnight events. - Objective Resuscitation Status: Resuscitation Status FULL:Full Resuscitation MAR Reviewed: Yes Vital Signs & Weight: Vital Signs (12 hours) Temp Pulse Resp BP Pulse Ox 03/18/17 08:57 97 03/18/17 08:00 98.2 F 97 18 161/109 H 97 03/18/17 03:55 94 L 03/18/17 03:45 98.1 F 91 15 160/100 H 93 L Weight Admit Weight 301 lb 3 oz Weight 301 lb 3 oz I&O: 03/17/17 03/18/17 03/19/17 06:59 06:59 06:59 Intake Total 558 514 480 Output Total 320 660 Balance 238 -146 480 Result Diagrams: 03/18/17 05:14 03/18/17 05:14 Additional Labs: Accuchecks 03/18/17 03/18/17 03/17/17 10:49 04:59 20:26 POC Glucose 103 115 H 133 H Phys Exam - Physical Examination Constitutional: NAD HEENT: PERRLA, moist MMs, sclera anicteric Neck: supple, full ROM Respiratory: no wheezing, no rales, no rhonchi, clear to auscultation bilateral Cardiovascular: RRR, no significant murmur, no rub Gastrointestinal: soft, non-tender, no distention, positive bowel sounds Musculoskeletal: no edema, pulses present Neurological: moves all 4 limbs strength 4/4 left extremities. Psychiatric: normal affect, A&O x 3 Dx/Plan (1) Acute ischemic stroke Code(s): I63.9 - CEREBRAL INFARCTION, UNSPECIFIED Status: Acute Plan: Improving with therapy. Continue PT, ASA, statins Comment: Cerebellar as seen on CT brain. MRI showed upper caitlin infarct (acute v subacute). Continue ASA and Statin, PT/OT. (2) CAD (coronary artery disease) Code(s): I25.10 - ATHSCL HEART DISEASE OF [place] CORONARY ARTERY W/O ANG PCTRS Status: Acute Qualifiers: Coronary Disease-Associated Artery/Lesion type: unspecified vessel or lesion type [place] vs. transplanted heart: [place] heart Associated angina: without angina Qualified Code(s): I25.10 - Atherosclerotic heart disease of [place] coronary artery without angina pectoris Plan: Continue current therapy. Comment: Stable, chest pain free. ON metoprolol, ASA and statins (3) HLD (hyperlipidemia) Code(s): E78.5 - HYPERLIPIDEMIA, UNSPECIFIED Status: Acute Qualifiers: Hyperlipidemia type: mixed hyperlipidemia Qualified Code(s): E78.2 - Mixed hyperlipidemia Comment: Continue Statins (4) HTN (hypertension) Code(s): I10 - ESSENTIAL (PRIMARY) HYPERTENSION Status: Acute Qualifiers: Hypertension type: essential hypertension Qualified Code(s): I10 - Essential (primary) hypertension Comment: Improving. Started on amlodipine and Lisinopril. Started metoprolol 03/16 PRN hydralazine for SBP > 180 (5) Type 2 diabetes mellitus with hyperglycemia Code(s): E11.65 - TYPE 2 DIABETES MELLITUS WITH HYPERGLYCEMIA Status: Acute Qualifiers: Diabetes mellitus termite exterminator insulin use: with termite exterminator use Qualified Code( s): E11.65 - Type 2 diabetes mellitus with hyperglycemia; Z79.4 - intermediate project manager ( current) use of insulin; Z79.4 - senior care (current) use of insulin; Z79.4 - senior care (current) use of insulin; Z79.4 - intermediate project manager (current) use of insulin Plan: Better controlled. Continue current therapy. Comment: Reports being on PO meds and insulin in past but not compliant. HbA1c 9.8, started on metformin and basal insulin. Diabetic diet. (6) Non-ST elevation myocardial infarction (NSTEMI), type 2 Code(s): I21.A1 - MYOCARDIAL INFARCTION TYPE 2 Status: Resolved Comment: demand ischemia 2/2 elevated BP. - Plan cont current plan of care, plan discussed w/ family, PT/OT Awaiting possible placement v home with therapy. * .
[2017-03-18] MEDS: Lisinopril 20 MG TAB PO SCH ×2 (12:09→21:21)
[2017-03-18] MEDS: Insulin Detemir 100 UNITS/ML 15 UNITS in Admixture Fee 1 EACH SC SCH (21:20)
[2017-03-18] MEDS: Melatonin 3 MG TAB PO PRN (21:21)
[2017-03-18] MEDS: Atorvastatin Calcium 40 MG TAB PO SCH (21:40)
[2017-03-19] MEDS ORDERED: Insulin Detemir 100 UNITS/ML 10 UNITS in Admixture Fee 1 EACH SC SCH ×2 (08:02→21:00)
[2017-03-19] MEDS: Lisinopril 20 MG TAB PO SCH ×2 (09:45→20:55)
[2017-03-19] MEDS: Amlodipine 10 MG TAB PO SCH (09:45)
[2017-03-19] MEDS: metFORMIN 500 MG TAB PO SCH ×2 (09:46→18:12)
[2017-03-19] MEDS: Potassium Chloride 20 MEQ TAB PO SCH (09:46)
[2017-03-19] MEDS: Aspirin 81 mg Enteric Coated Tablet PO SCH (09:46)
[2017-03-19] MEDS: Heparin 5,000 UNITS/ML VIAL SC SCH ×2 (09:47→20:56)
[2017-03-19] MEDS ORDERED: Albuterol Sulfate 2.5 mg/3 ml Neb NEB PRN (10:06)
--- NOTE | 2017-03-19 10:06 | PDOC.PN ---
- Subjective Encounter Start Date: 03/19/17 Encounter Start Time: 10:06 Subjective: No new complaints today -: No acute events overnight. - Objective Resuscitation Status: Resuscitation Status FULL:Full Resuscitation MAR Reviewed: Yes Vital Signs & Weight: Vital Signs (12 hours) Temp Pulse Resp BP BP Pulse Ox 03/19/17 09:45 91 167/107 H 03/19/17 07:10 98 F 91 22 H 162/107 H 97 03/19/17 04:00 97.9 F 89 14 155/89 H 94 L 03/19/17 00:00 98.2 F 94 16 167/105 H 90 L Weight Admit Weight 301 lb 3 oz Weight 301 lb 3 oz I&O: 03/18/17 03/19/17 03/20/17 06:59 06:59 06:59 Intake Total 514 1680 Output Total 660 1760 Balance -146 -80 Result Diagrams: 03/18/17 05:14 03/18/17 05:14 Additional Labs: Accuchecks 03/19/17 03/18/17 03/18/17 04:52 20:13 16:48 POC Glucose 105 140 H 107 03/18/17 03/17/17 10:49 16:36 POC Glucose 103 109 Phys Exam - Physical Examination Constitutional: NAD HEENT: PERRLA, moist MMs, sclera anicteric Neck: supple, full ROM Respiratory: no wheezing, no rales, no rhonchi, clear to auscultation bilateral Cardiovascular: RRR, no significant murmur, no rub Gastrointestinal: soft, non-tender, no distention, positive bowel sounds Musculoskeletal: no edema, pulses present Neurological: non-focal, moves all 4 limbs Psychiatric: normal affect, A&O x 3 Skin: no rash, normal turgor Dx/Plan (1) Acute ischemic stroke Code(s): I63.9 - CEREBRAL INFARCTION, UNSPECIFIED Status: Acute Plan: Improving with therapy. To rehab once bed available vs home with PT/OT Comment: Cerebellar as seen on CT brain. MRI showed upper caitlin infarct (acute v subacute). Continue ASA and Statin, PT/OT. f/u TTE (2) CAD (coronary artery disease) Code(s): I25.10 - ATHSCL HEART DISEASE OF [place] CORONARY ARTERY W/O ANG PCTRS Status: Acute Qualifiers: Coronary Disease-Associated Artery/Lesion type: unspecified vessel or lesion type [place] vs. transplanted heart: [place] heart Associated angina: without angina Qualified Code(s): I25.10 - Atherosclerotic heart disease of [place] coronary artery without angina pectoris Plan: Continue current medications. Comment: Stable, chest pain free. ON metoprolol, ASA and statins (3) HLD (hyperlipidemia) Code(s): E78.5 - HYPERLIPIDEMIA, UNSPECIFIED Status: Acute Qualifiers: Hyperlipidemia type: mixed hyperlipidemia Qualified Code(s): E78.2 - Mixed hyperlipidemia Plan: Continue statin. Comment: Continue Statins (4) HTN (hypertension) Code(s): I10 - ESSENTIAL (PRIMARY) HYPERTENSION Status: Acute Qualifiers: Hypertension type: essential hypertension Qualified Code(s): I10 - Essential (primary) hypertension Plan: Continue current meds. Achieving better control. Comment: Improving. Started on amlodipine and Lisinopril. Started metoprolol 03/16 PRN hydralazine for SBP > 180 (5) Type 2 diabetes mellitus with hyperglycemia Code(s): E11.65 - TYPE 2 DIABETES MELLITUS WITH HYPERGLYCEMIA Status: Acute Qualifiers: Diabetes mellitus fdc insulin use: with marine oil terminal superintendent use Qualified Code( s): E11.65 - Type 2 diabetes mellitus with hyperglycemia; Z79.4 - termite exterminator helper ( current) use of insulin; Z79.4 - termite exterminator helper (current) use of insulin; Z79.4 - termite exterminator helper (current) use of insulin; Z79.4 - termite exterminator helper (current) use of insulin Plan: Reduce long acting insulin to 10 units daily. Glucose at goal. Comment: Reports being on PO meds and insulin in past but not compliant. HbA1c 9.8, started on metformin and basal insulin. Diabetic diet. - Plan cont current plan of care, PT/OT, director of social media marketing, DVT proph w/heparin * .
[2017-03-19] MEDS: Acetaminophen 325 MG TAB PO PRN (20:55)
[2017-03-19] MEDS: Atorvastatin Calcium 40 MG TAB PO SCH (20:55)
[2017-03-19] MEDS: Melatonin 3 MG TAB PO PRN (20:57)
[2017-03-20] MEDS ORDERED: Furosemide 20 MG TAB PO SCH (09:00)
[2017-03-20] MEDS: metFORMIN 500 MG TAB PO SCH ×2 (09:46→18:30)
[2017-03-20] MEDS: Potassium Chloride 20 MEQ TAB PO SCH (09:46)
[2017-03-20] MEDS: Aspirin 81 mg Enteric Coated Tablet PO SCH (09:46)
[2017-03-20] MEDS: Amlodipine 10 MG TAB PO SCH (09:47)
[2017-03-20] MEDS: Lisinopril 20 MG TAB PO SCH (09:47)
[2017-03-20] MEDS: Heparin 5,000 UNITS/ML VIAL SC SCH (09:54)
--- NOTE | 2017-03-20 10:05 | PDOC.PN ---
- Subjective Encounter Start Date: 03/20/17 Encounter Start Time: 10:03 Subjective: No new complaints. -: HAs been ambulating well w PT -: No acute overnight. - Objective Resuscitation Status: Resuscitation Status FULL:Full Resuscitation MAR Reviewed: Yes Vital Signs & Weight: Vital Signs (12 hours) Temp Pulse Pulse Pulse Resp BP BP 03/20/17 09:47 92 158/103 H 03/20/17 08:34 99 94 158/103 H 03/20/17 08:00 98.2 F 92 20 03/20/17 04:15 98.5 F 85 16 03/19/17 23:40 98.6 F 88 16 BP BP Pulse Ox 03/20/17 09:47 03/20/17 08:34 159/99 H 03/20/17 08:00 155/106 H 96 03/20/17 04:15 133/83 99 03/19/17 23:40 158/102 H 97 Weight Admit Weight 301 lb 3 oz Weight 301 lb 3 oz I&O: 03/19/17 03/20/17 03/21/17 06:59 06:59 06:59 Intake Total 1680 1450 Output Total 1760 400 Balance -80 1050 Result Diagrams: 03/18/17 05:14 03/18/17 05:14 Additional Labs: Accuchecks 03/20/17 03/19/17 03/19/17 06:18 21:13 16:40 POC Glucose 95 152 H 113 H 03/19/17 10:33 POC Glucose 133 H Phys Exam - Physical Examination Constitutional: NAD HEENT: PERRLA, moist MMs, sclera anicteric Neck: supple, full ROM Respiratory: no wheezing, no rales, no rhonchi, clear to auscultation bilateral Cardiovascular: RRR, no significant murmur, no rub Gastrointestinal: soft, non-tender, no distention, positive bowel sounds Musculoskeletal: no edema, pulses present Neurological: non-focal, moves all 4 limbs Skin: no rash, normal turgor Dx/Plan (1) Acute ischemic stroke Code(s): I63.9 - CEREBRAL INFARCTION, UNSPECIFIED Status: Acute Comment: Stable. CT brain showed a cerebellar infarct and he had an MRI which showed upper caitlin infarct (acute v subacute). TTE showed moderate MR w EF 45-50%. Continue ASA and Statin, PT/OT. (2) CAD (coronary artery disease) Code(s): I25.10 - ATHSCL HEART DISEASE OF [place] CORONARY ARTERY W/O ANG PCTRS Status: Acute Qualifiers: Coronary Disease-Associated Artery/Lesion type: unspecified vessel or lesion type [place] vs. transplanted heart: [place] heart Associated angina: without angina Qualified Code(s): I25.10 - Atherosclerotic heart disease of [place] coronary artery without angina pectoris Comment: Stable, chest pain free. On metoprolol, ASA and statins (3) HLD (hyperlipidemia) Code(s): E78.5 - HYPERLIPIDEMIA, UNSPECIFIED Status: Acute Qualifiers: Hyperlipidemia type: mixed hyperlipidemia Qualified Code(s): E78.2 - Mixed hyperlipidemia Comment: Continue Statins (4) HTN (hypertension) Code(s): I10 - ESSENTIAL (PRIMARY) HYPERTENSION Status: Acute Qualifiers: Hypertension type: essential hypertension Qualified Code(s): I10 - Essential (primary) hypertension Comment: Improving. Currently on Lisinopril, amlodipine and metoprolol. PRN hydralazine for SBP > 180 (5) Type 2 diabetes mellitus with hyperglycemia Code(s): E11.65 - TYPE 2 DIABETES MELLITUS WITH HYPERGLYCEMIA Status: Acute Qualifiers: Diabetes mellitus detention insulin use: with manager intermediate use Qualified Code( s): E11.65 - Type 2 diabetes mellitus with hyperglycemia; Z79.4 - equipment operator intermodal yard ( current) use of insulin; Z79.4 - retirement (current) use of insulin; Z79.4 - equipment operator intermodal yard (current) use of insulin; Z79.4 - equipment operator intermodal yard (current) use of insulin Comment: Reports being on PO meds and insulin in past but not compliant. HbA1c 9.8. Has had excellent control. Might not require insulin Continue metformin. Hold Detemir for today. If glucose trending up, then will start a second oral agent. Ensure adherence to diabetic diet. - Plan cont current plan of care, PT/OT, executive secretary social welfare [place] home with home health services. * .
[2017-03-20 15:38] VITALS: BP 156/95; TEMP 99.9
--- NOTE | 2017-03-21 01:42 | DIS ---
DATE OF ADMISSION: 03/13/2017 DATE OF DISCHARGE: 03/20/2017 CONDITION AT DISCHARGE: Stable and improved. PRIMARY DIAGNOSIS: Acute ischemic stroke. SECONDARY DIAGNOSES: Type 2 diabetes mellitus, hypertension, coronary artery disease, and hyperlipidemia. HISTORY OF PRESENT ILLNESS: A 51-year-old male with a history of hypertension and diabetes, who presented to the emergency room with 1 day of left-sided weakness resulting in a fall. He reported drinking a can of beer after which he noted he was not able to move his left side properly. He denied any loss of consciousness or facial droop or admitted to slurred speech. No similar episodes in the past. He also complained of intermittent chest pain for the prior 3 to 4 days described as pressure-like, substernal, radiating to left shoulder. He denied palpitations, nausea, or vomiting, but admitted to occasional shortness of breath. HOSPITAL COURSE: A CT brain without contrast done at the emergency room showed no evidence of intracranial hemorrhage or mass effect, but showed possible age indeterminate infarction involved with left cerebellar hemisphere. He subsequently had a brain MRI and this showed an acute or subacute infarction of the right upper caitlin and in no acute infarction of the left cerebellum in the left PICA territory. He was started on physical, occupational, and speech language pathology therapy. He immediately received aspirin at the emergency room and continued on a daily aspirin with statin. His hypertension was controlled with p.o. medications and his diabetes was also under control by the aid of p.o. medications. He improved with therapy and was deemed stable for discharge today. The patient had an echocardiogram which showed the left ventricular size, which was normal with ejection fraction of 45% to 50% with moderate concentric LVH and severely dilated left atrium. He also had moderate mitral regurgitation and mild tricuspid regurgitation. DISCHARGE MEDICATIONS: Amlodipine 10 mg daily, aspirin 81 mg p.o. daily, furosemide 20 mg p.o. daily, lisinopril 40 mg p.o. b.i.d., lovastatin 20 mg p.o. q.a.m., metformin 1000 mg p.o. b.i.d., metoprolol tartrate 75 mg p.o. q.12 hours, sublingual nitroglycerin 0.4 mg q.5 minutes p.r.n. for chest pain. CONSULTS: Neurology, Cardiology. PROCEDURES: None. IMAGING: CTA which showed findings are compatible with age indeterminate, left PICA distribution, infarction. There is no evidence of focal vessel stenosis, branch occlusions or aneurysm involving intracranial vessels and no evidence for significant ICA territory stenosis involving the extracranial portion of each ICA. DIET: Diabetic, heart healthy diet. ACTIVITY: As tolerated and directed by physical/occupational therapy as scheduled. Care Goals: He is to follow up with his primary care physician within 1 week of discharge for followup to achieve optimum blood pressure and blood glucose goals. Total time of discharge including chart review 70 minutes. MTDD
== END 2017-03-20 19:12 | disposition home health service (06) | DRG 64 ==
LOC: ERS 19:59 → 2NO 22:00 → 2SE 03-14 13:32
PROVIDERS: ADMIT Internal Medicine Infectious Disease; ATTEND Internal Medicine Infectious Disease
DX: I63.9 Cerebral infarction, unspecified (principal); I21.A1 Myocardial infarction type 2; G81.94 Hemiplegia, unspecified affecting left nondominant side; E11.65 Type 2 diabetes mellitus with hyperglycemia; I10 Essential (primary) hypertension; I25.10 Atherosclerotic heart disease of native coronary artery without angina pectoris; F10.10 Alcohol abuse, uncomplicated; E78.2 Mixed hyperlipidemia; Z79.4 Long term (current) use of insulin; Z23 Encounter for immunization
CPT/HCPCS: 0042T; 36415; 36416; 70450; 70496; 70498; 70551; 71045; 80048; 80053; 80061; 80306; 80307; 81003; 81015; 82553; 83036; 83690; 83735; 83880; 84443; 84484; 85025; 85610; 85652; 85730; 86140; 90471; 90682; 90732; 93005; 93306; 94760; 96372; 96374; 96375; J2270; A4216; G0008; G0009; G8978-GP-CL; G8979-GP-CJ; G8987-GO-CJ; G8988-GO-CH; G8996-GN-CJ; G8997-GN-CJ; J0360; J1644; J1650; J1815; J1885; J3010; J7620; Q2036

== ENCOUNTER 2020-07-05 14:56 | Inpatient (IN) | payer OTHER ==
[2020-07-05 15:36] LABS: #Eosinphils 0.3 thou/uL (0.0-0.7); #Monocytes 0.5 thou/uL (0.11-0.59); #Neutrophils 4.5 thou/uL (1.40-6.50); %Basophils 0.5 % (0.0-1.0); %Eosinophils 4.8 % (0.0-10.0); %Lymphocytes 15.3 % (21.0-51.0); %Monocytes 8.2 % (0.0-10.0); %Neutrophils 71.3 % (42.0-75.0); Mean Corpuscular HGB CONC 31.3 g/dL (32.0-36.0); Mean Corpuscular Hemoglobin 27.4 pg (27.0-31.0); Mean Corpuscular Volume 87.7 fL (78.0-98.0); Platelet Count 192 thou/uL (130-400); RBC Distribution Width 15.7 % (11.5-14.5); Red Blood Cell (RBC) Count 3.29 mill/uL (4.70-6.10); White Blood Cell (WBC) Count 6.3 thou/uL (4.8-10.8)
[2020-07-05 15:52] LABS: Bacteria/HPF None Seen HPF (None Seen); Bilirubin Negative (Negative); Blood, Urine 1+ (Negative); Clarity Turbid (Clear); Glucose, Urine (Dipstick) Normal (Negative); Ketone, Urine Negative (Negative); Leukocyte Negative Leu/uL (Negative); Nitrite Negative (Negative); Protein, Urine (Dipstick) 200 mg/dL (Neg-Trace); Specific Gravity, Urine 1.019 (1.002-1.036); Squamous Epithelial None Seen HPF (0-3); WBC/HPF 0-3 HPF (0-3); pH, Urine 5.5 (5.0-9.0)
[2020-07-05 15:54] LABS: ALT (SGPT) Less than 7 U/L (8-55); AST (SGOT) 10 U/L (5-34); Albumin 3.5 g/dL (3.5-5.0); Alkaline Phosphatase 128 U/L (40-110); Anion Gap 15 mmol/L (10-20); BUN (Urea Nitrogen) 25 mg/dL (8.4-25.7); Calc. Creatinine Clearance 0 mL/min (70-130); Carbon Dioxide 22 mmol/L (22-29); Chloride 109 mmol/L (98-107); Globulin 3.4 g/dL (2.4-3.5); Glucose 119 mg/dL (70-105); Potassium 4.2 mmol/L (3.5-5.1); Protein, Total 6.9 g/dL (6.0-8.3); Sodium 142 mmol/L (136-145)
[2020-07-05] MEDS ORDERED: Aspirin Chewable 81 MG TAB ONE (16:11)
[2020-07-05] MEDS ORDERED: Furosemide 40 MG/4 ML VIAL ONE (16:11)
[2020-07-05 18:40] LABS: SARS-CoV-2 NAA Rapid Test Not Detected (NotDetected)
[2020-07-05 19:55] VITALS: BMI 43.2
[2020-07-05 21:48] LABS: Troponin I 0.029 ng/mL (< 0.028)
[2020-07-06] MEDS ORDERED: Ondansetron PF 4 MG/2 ML Vial IVP PRN (00:34)
[2020-07-06] MEDS ORDERED: Acetaminophen 325 MG TAB PO PRN (00:34)
[2020-07-06] MEDS ORDERED: Dextrose 50% Abboject 50 ML SYRINGE SLOW IVP PRN (00:37)
[2020-07-06] MEDS ORDERED: HumaLOG 300 UNITS/3 ML VIAL SC PRN (00:37)
[2020-07-06] MEDS ORDERED: Dextrose 5% in Water 1,000 ML IV PRN (00:37)
[2020-07-06] MEDS ORDERED: Furosemide 40 MG/4 ML VIAL SLOW IVP SCH (00:45)
[2020-07-06 03:35] LABS: #Eosinphils 0.3 thou/uL (0.0-0.7); #Lymphocytes 0.9 thou/uL (1.20-3.40); #Monocytes 0.4 thou/uL (0.11-0.59); #Neutrophils 3.3 thou/uL (1.40-6.50); %Basophils 0.6 % (0.0-1.0); %Eosinophils 5.8 % (0.0-10.0); %Lymphocytes 19.1 % (21.0-51.0); %Monocytes 8.3 % (0.0-10.0); %Neutrophils 66.3 % (42.0-75.0); Mean Corpuscular HGB CONC 32.1 g/dL (32.0-36.0); Mean Corpuscular Hemoglobin 28.4 pg (27.0-31.0); Mean Corpuscular Volume 88.5 fL (78.0-98.0); Mean Platelet Volume 8.6 fL (7.4-10.4); Platelet Count 176 thou/uL (130-400); RBC Distribution Width 15.7 % (11.5-14.5); Red Blood Cell (RBC) Count 3.16 mill/uL (4.70-6.10); White Blood Cell (WBC) Count 4.9 thou/uL (4.8-10.8)
[2020-07-06 03:55] LABS: Anion Gap 12 mmol/L (10-20); BUN (Urea Nitrogen) 22 mg/dL (8.4-25.7); Calc. Creatinine Clearance 91 mL/min (70-130); Carbon Dioxide 24 mmol/L (22-29); Chloride 110 mmol/L (98-107); Potassium 3.8 mmol/L (3.5-5.1); Sodium 142 mmol/L (136-145)
[2020-07-06 03:56] LABS: Calcium 9.1 mg/dL (7.8-10.44); Glucose 83 mg/dL (70-105)
[2020-07-06] MEDS: Furosemide 40 MG/4 ML VIAL SLOW IVP SCH ×2 (05:12→16:15)
[2020-07-06 06:51] LABS: Bacteria/HPF None Seen HPF (None Seen); Bilirubin Negative (Negative); Blood, Urine 2+ (Negative); Clarity Clear (Clear); Glucose, Urine (Dipstick) Normal (Negative); Ketone, Urine Negative (Negative); Leukocyte Negative Leu/uL (Negative); Nitrite Negative (Negative); Protein, Urine (Dipstick) 50 mg/dL (Neg-Trace); RBC/HPF 21-50 HPF (0-3); Specific Gravity, Urine 1.011 (1.002-1.036); Squamous Epithelial None Seen HPF (0-3); Urobilinogen Normal mg/dL (Less than 2); WBC/HPF None Seen HPF (0-3)
[2020-07-06 06:55] LABS: Urine Culture Reflex No No
[2020-07-06] MEDS: Carvedilol 25 MG TAB PO SCH ×2 (11:04→16:15)
[2020-07-06] MEDS: Apixaban 5 MG TAB PO SCH ×2 (11:04→20:16)
[2020-07-06] MEDS: Atorvastatin Calcium 40 MG TAB PO SCH (20:16)
[2020-07-06] MEDS ORDERED: Atorvastatin Calcium 40 MG TAB PO SCH (21:00)
[2020-07-07] MEDS: Furosemide 40 MG/4 ML VIAL SLOW IVP SCH ×2 (03:16→16:49)
[2020-07-07 03:52] LABS: #Eosinphils 0.4 thou/uL (0.0-0.7); #Monocytes 0.5 thou/uL (0.11-0.59); #Neutrophils 4.6 thou/uL (1.40-6.50); %Basophils 0.2 % (0.0-1.0); %Eosinophils 5.7 % (0.0-10.0); %Lymphocytes 14.9 % (21.0-51.0); %Monocytes 7.7 % (0.0-10.0); %Neutrophils 71.6 % (42.0-75.0); Hemoglobin 9.3 g/dL (14.0-18.0); Mean Corpuscular HGB CONC 30.8 g/dL (32.0-36.0); Mean Corpuscular Hemoglobin 27.1 pg (27.0-31.0); Mean Corpuscular Volume 88.1 fL (78.0-98.0); Mean Platelet Volume 8.8 fL (7.4-10.4); Platelet Count 183 thou/uL (130-400); RBC Distribution Width 15.8 % (11.5-14.5); Red Blood Cell (RBC) Count 3.42 mill/uL (4.70-6.10); White Blood Cell (WBC) Count 6.4 thou/uL (4.8-10.8)
[2020-07-07 04:13] LABS: Anion Gap 15 mmol/L (10-20); BUN (Urea Nitrogen) 20 mg/dL (8.4-25.7); Calc. Creatinine Clearance 92 mL/min (70-130); Calcium 9.2 mg/dL (7.8-10.44); Carbon Dioxide 22 mmol/L (22-29); Chloride 109 mmol/L (98-107); Glucose 122 mg/dL (70-105); Potassium 3.9 mmol/L (3.5-5.1); Sodium 142 mmol/L (136-145)
[2020-07-07] MEDS: Amiodarone 200 MG TAB PO SCH (09:26)
[2020-07-07] MEDS: Allopurinol 100 MG TAB PO SCH (09:26)
[2020-07-07] MEDS: Apixaban 5 MG TAB PO SCH ×2 (09:26→20:15)
[2020-07-07] MEDS: Carvedilol 25 MG TAB PO SCH ×2 (09:26→16:49)
[2020-07-07] MEDS: Aspirin 81 mg Enteric Coated Tablet PO SCH (09:26)
[2020-07-07] MEDS: HumaLOG 300 UNITS/3 ML VIAL SC PRN (12:18)
[2020-07-07] MEDS: Atorvastatin Calcium 40 MG TAB PO SCH (20:15)
[2020-07-08] MEDS: Furosemide 40 MG/4 ML VIAL SLOW IVP SCH ×2 (03:30→17:20)
[2020-07-08 04:34] LABS: #Eosinphils 0.4 thou/uL (0.0-0.7); #Lymphocytes 0.8 thou/uL (1.20-3.40); #Monocytes 0.5 thou/uL (0.11-0.59); %Basophils 0.3 % (0.0-1.0); %Eosinophils 8.1 % (0.0-10.0); %Lymphocytes 17.5 % (21.0-51.0); %Monocytes 11.5 % (0.0-10.0); %Neutrophils 62.6 % (42.0-75.0); Hemoglobin 8.8 g/dL (14.0-18.0); Mean Corpuscular Hemoglobin 28.5 pg (27.0-31.0); Mean Platelet Volume 9.2 fL (7.4-10.4); Platelet Count 177 thou/uL (130-400); RBC Distribution Width 15.8 % (11.5-14.5); Red Blood Cell (RBC) Count 3.09 mill/uL (4.70-6.10); White Blood Cell (WBC) Count 4.7 thou/uL (4.8-10.8)
[2020-07-08 05:02] LABS: Anion Gap 12 mmol/L (10-20); BUN (Urea Nitrogen) 17 mg/dL (8.4-25.7); Calc. Creatinine Clearance 101 mL/min (70-130); Calcium 8.8 mg/dL (7.8-10.44); Carbon Dioxide 26 mmol/L (22-29); Chloride 108 mmol/L (98-107); Glucose 108 mg/dL (70-105); Potassium 3.6 mmol/L (3.5-5.1); Sodium 142 mmol/L (136-145)
[2020-07-08] MEDS: Carvedilol 25 MG TAB PO SCH ×2 (08:56→17:20)
[2020-07-08] MEDS: Allopurinol 100 MG TAB PO SCH (08:56)
[2020-07-08] MEDS: Amiodarone 200 MG TAB PO SCH (08:56)
[2020-07-08] MEDS: Aspirin 81 mg Enteric Coated Tablet PO SCH (08:56)
[2020-07-08] MEDS: Apixaban 5 MG TAB PO SCH ×2 (08:56→20:30)
[2020-07-08] MEDS: Atorvastatin Calcium 40 MG TAB PO SCH (20:30)
[2020-07-09] MEDS: Furosemide 40 MG/4 ML VIAL SLOW IVP SCH ×2 (04:02→16:37)
[2020-07-09 07:22] LABS: Anion Gap 12 mmol/L (10-20); BUN (Urea Nitrogen) 14 mg/dL (8.4-25.7); Calc. Creatinine Clearance 106 mL/min (70-130); Calcium 8.9 mg/dL (7.8-10.44); Carbon Dioxide 26 mmol/L (22-29); Chloride 107 mmol/L (98-107); Glucose 141 mg/dL (70-105); Potassium 3.8 mmol/L (3.5-5.1); Sodium 141 mmol/L (136-145)
[2020-07-09] MEDS: Aspirin 81 mg Enteric Coated Tablet PO SCH (11:01)
[2020-07-09] MEDS: Apixaban 5 MG TAB PO SCH ×2 (11:01→20:18)
[2020-07-09] MEDS: Carvedilol 25 MG TAB PO SCH ×2 (11:01→16:37)
[2020-07-09] MEDS: Amiodarone 200 MG TAB PO SCH (11:01)
[2020-07-09] MEDS: Allopurinol 100 MG TAB PO SCH (11:02)
[2020-07-09] MEDS: HumaLOG 300 UNITS/3 ML VIAL SC PRN (11:03)
[2020-07-09] MEDS: Atorvastatin Calcium 40 MG TAB PO SCH (20:18)
[2020-07-10] MEDS: Furosemide 40 MG/4 ML VIAL SLOW IVP SCH ×2 (03:07→17:39)
[2020-07-10] MEDS ORDERED: Metoprolol Tartrate 5 MG/5 ML VIAL IVP PRN (04:19)
[2020-07-10 05:15] LABS: Anion Gap 14 mmol/L (10-20); BUN (Urea Nitrogen) 15 mg/dL (8.4-25.7); Calc. Creatinine Clearance 102 mL/min (70-130); Calcium 9.2 mg/dL (7.8-10.44); Carbon Dioxide 26 mmol/L (22-29); Chloride 106 mmol/L (98-107); Glucose 131 mg/dL (70-105); Potassium 3.7 mmol/L (3.5-5.1); Sodium 142 mmol/L (136-145)
[2020-07-10] MEDS ORDERED: Polyethylene Glycol 3350 17 GM Packet PO PRN (09:50)
[2020-07-10] MEDS: Allopurinol 100 MG TAB PO SCH (09:58)
[2020-07-10] MEDS: Metolazone 5 MG TAB PO SCH (09:58)
[2020-07-10] MEDS: Carvedilol 25 MG TAB PO SCH ×2 (09:58→17:39)
[2020-07-10] MEDS: Aspirin 81 mg Enteric Coated Tablet PO SCH (09:58)
[2020-07-10] MEDS: Amiodarone 200 MG TAB PO SCH (09:58)
[2020-07-10] MEDS: Apixaban 5 MG TAB PO SCH ×2 (09:58→20:26)
[2020-07-10] MEDS ORDERED: Polyethylene Glycol 3350 17 GM Packet PO SCH (10:00)
[2020-07-10] MEDS ORDERED: cloNIDine 0.1 MG TAB PO PRN (11:38)
[2020-07-10] MEDS ORDERED: methylPREDNISolone Sod Succ 40 MG VIAL IVP SCH (11:45)
[2020-07-10] MEDS ORDERED: Furosemide 40 MG/4 ML VIAL SLOW IVP SCH (11:45)
[2020-07-10] MEDS ORDERED: Potassium Chloride 20 MEQ TAB PO SCH ×2 (11:45→17:00)
[2020-07-10] MEDS ORDERED: Ipratropium Bromide 2.5 ml Neb NEB PRN (12:32)
[2020-07-10 13:32] LABS: Actual Bicarbonate (HCO3v) 22 mEq/L (22-28); Base Excess -1.6 mEq/L (-2.0 to +3.0); Calcium, Ionized (venous) 1.14 mmol/L (1.16-1.32); Chloride (VBG) 106 mmol/L (98-106); Hemoglobin (Hb) 10.1 g/dL (13.1-17.2); Potassium (VBG) 3.79 mmol/L (3.70-5.30); Sodium 142.1 mmol/L (133-146); pH (venous) 7.44 (7.32-7.43)
[2020-07-10] MEDS ORDERED: Ipratropium Bromide 2.5 ml Neb NEB SCH (14:30)
[2020-07-10] MEDS: HumaLOG 300 UNITS/3 ML VIAL SC PRN (17:39)
[2020-07-10] MEDS: Budesonide 0.5 MG/2 ML NEB NEB SCH (19:02)
[2020-07-10] MEDS: Senokot S 8.6-50 MG TAB PO SCH (20:26)
[2020-07-10] MEDS: Atorvastatin Calcium 40 MG TAB PO SCH (20:26)
[2020-07-10] MEDS ORDERED: Senokot S 8.6-50 MG TAB PO SCH (21:00)
[2020-07-11 03:55] LABS: #Lymphocytes 0.7 thou/uL (1.20-3.40); #Monocytes 0.5 thou/uL (0.11-0.59); #Neutrophils 4.7 thou/uL (1.40-6.50); %Basophils 0.4 % (0.0-1.0); %Eosinophils 0.3 % (0.0-10.0); %Lymphocytes 11.3 % (21.0-51.0); %Monocytes 7.7 % (0.0-10.0); %Neutrophils 80.4 % (42.0-75.0); Hemoglobin 9.1 g/dL (14.0-18.0); Mean Platelet Volume 9.4 fL (7.4-10.4); Platelet Count 167 thou/uL (130-400); RBC Distribution Width 15.4 % (11.5-14.5); Red Blood Cell (RBC) Count 3.37 mill/uL (4.70-6.10); White Blood Cell (WBC) Count 5.9 thou/uL (4.8-10.8)
[2020-07-11 04:11] LABS: Anion Gap 13 mmol/L (10-20); BUN (Urea Nitrogen) 17 mg/dL (8.4-25.7); Calc. Creatinine Clearance 97 mL/min (70-130); Calcium 9.2 mg/dL (7.8-10.44); Carbon Dioxide 26 mmol/L (22-29); Chloride 105 mmol/L (98-107); Glucose 232 mg/dL (70-105); Magnesium 1.8 mg/dL (1.6-2.6); Sodium 140 mmol/L (136-145)
[2020-07-11] MEDS: Furosemide 40 MG/4 ML VIAL SLOW IVP SCH ×2 (04:13→16:47)
[2020-07-11] MEDS: HumaLOG 300 UNITS/3 ML VIAL SC PRN ×3 (06:20→16:47)
[2020-07-11] MEDS ORDERED: Magnesium 2 GM/50 ML 2 GM in Premix Bag 1 BAG IVPB SCH (07:30)
[2020-07-11] MEDS: Budesonide 0.5 MG/2 ML NEB NEB SCH ×2 (07:41→18:52)
[2020-07-11] MEDS: Carvedilol 25 MG TAB PO SCH ×2 (09:03→16:47)
[2020-07-11] MEDS: Senokot S 8.6-50 MG TAB PO SCH ×2 (09:06→20:57)
[2020-07-11] MEDS: Metolazone 5 MG TAB PO SCH (09:07)
[2020-07-11] MEDS: Amiodarone 200 MG TAB PO SCH (09:07)
[2020-07-11] MEDS: Allopurinol 100 MG TAB PO SCH (09:07)
[2020-07-11] MEDS: Aspirin 81 mg Enteric Coated Tablet PO SCH (09:07)
[2020-07-11] MEDS: Apixaban 5 MG TAB PO SCH ×2 (09:07→20:58)
[2020-07-11] MEDS: Atorvastatin Calcium 40 MG TAB PO SCH (20:57)
[2020-07-11] MEDS: Polyethylene Glycol 3350 17 GM Packet PO SCH (21:00)
[2020-07-12] MEDS: Furosemide 40 MG/4 ML VIAL SLOW IVP SCH ×2 (04:04→16:18)
[2020-07-12] MEDS: Budesonide 0.5 MG/2 ML NEB NEB SCH ×2 (06:49→19:15)
[2020-07-12] MEDS: Senokot S 8.6-50 MG TAB PO SCH ×2 (09:52→21:17)
[2020-07-12] MEDS: Allopurinol 100 MG TAB PO SCH (09:52)
[2020-07-12] MEDS: Aspirin 81 mg Enteric Coated Tablet PO SCH (09:52)
[2020-07-12] MEDS: Amiodarone 200 MG TAB PO SCH (09:52)
[2020-07-12] MEDS: Metolazone 5 MG TAB PO SCH (09:52)
[2020-07-12] MEDS: Carvedilol 25 MG TAB PO SCH ×2 (09:52→16:18)
[2020-07-12] MEDS: Apixaban 5 MG TAB PO SCH ×2 (09:52→21:17)
[2020-07-12 10:18] LABS: Anion Gap 9 mmol/L (10-20); BUN (Urea Nitrogen) 18 mg/dL (8.4-25.7); Calc. Creatinine Clearance 90 mL/min (70-130); Calcium 9.3 mg/dL (7.8-10.44); Carbon Dioxide 30 mmol/L (22-29); Chloride 102 mmol/L (98-107); Glucose 176 mg/dL (70-105); Potassium 3.3 mmol/L (3.5-5.1); Sodium 138 mmol/L (136-145)
[2020-07-12] MEDS ORDERED: Potassium Chloride 20 MEQ TAB PO SCH (17:00)
[2020-07-12] MEDS: HumaLOG 300 UNITS/3 ML VIAL SC PRN (17:31)
[2020-07-12] MEDS: Atorvastatin Calcium 40 MG TAB PO SCH (21:17)
[2020-07-12] MEDS: Polyethylene Glycol 3350 17 GM Packet PO SCH (21:17)
[2020-07-12] MEDS ORDERED: Electrolyte Replacement Protocol 1 EACH FS SCH (22:30)
[2020-07-13] MEDS: Furosemide 40 MG/4 ML VIAL SLOW IVP SCH ×2 (03:37→16:38)
[2020-07-13 04:46] LABS: #Eosinphils 0.4 thou/uL (0.0-0.7); #Lymphocytes 1.1 thou/uL (1.20-3.40); #Monocytes 0.8 thou/uL (0.11-0.59); #Neutrophils 5.1 thou/uL (1.40-6.50); %Basophils 0.2 % (0.0-1.0); %Eosinophils 5.4 % (0.0-10.0); %Lymphocytes 15.3 % (21.0-51.0); %Monocytes 11.1 % (0.0-10.0); Hemoglobin 9.9 g/dL (14.0-18.0); Mean Corpuscular HGB CONC 32.2 g/dL (32.0-36.0); Mean Corpuscular Hemoglobin 28.1 pg (27.0-31.0); Mean Corpuscular Volume 87.3 fL (78.0-98.0); Mean Platelet Volume 9.4 fL (7.4-10.4); Platelet Count 172 thou/uL (130-400); RBC Distribution Width 15.6 % (11.5-14.5); Red Blood Cell (RBC) Count 3.53 mill/uL (4.70-6.10); White Blood Cell (WBC) Count 7.5 thou/uL (4.8-10.8)
[2020-07-13 05:10] LABS: Anion Gap 12 mmol/L (10-20); BUN (Urea Nitrogen) 18 mg/dL (8.4-25.7); Calc. Creatinine Clearance 92 mL/min (70-130); Calcium 9.3 mg/dL (7.8-10.44); Carbon Dioxide 27 mmol/L (22-29); Chloride 102 mmol/L (98-107); Glucose 164 mg/dL (70-105); Magnesium 1.7 mg/dL (1.6-2.6); Potassium 3.4 mmol/L (3.5-5.1); Sodium 138 mmol/L (136-145)
[2020-07-13] MEDS ORDERED: Magnesium 2 GM/50 ML 2 GM in Premix Bag 1 BAG IVPB SCH (05:15)
[2020-07-13] MEDS ORDERED: Potassium Chloride 20 MEQ TAB PO SCH (06:30)
[2020-07-13] MEDS: Budesonide 0.5 MG/2 ML NEB NEB SCH ×2 (07:30→19:03)
[2020-07-13] MEDS: Allopurinol 100 MG TAB PO SCH (09:16)
[2020-07-13] MEDS: Senokot S 8.6-50 MG TAB PO SCH ×2 (09:16→20:36)
[2020-07-13] MEDS: Metolazone 5 MG TAB PO SCH (09:17)
[2020-07-13] MEDS: Apixaban 5 MG TAB PO SCH ×2 (09:17→20:36)
[2020-07-13] MEDS: Amiodarone 200 MG TAB PO SCH (09:17)
[2020-07-13] MEDS: Aspirin 81 mg Enteric Coated Tablet PO SCH (09:17)
[2020-07-13] MEDS: Carvedilol 25 MG TAB PO SCH ×2 (09:17→16:38)
[2020-07-13] MEDS: HumaLOG 300 UNITS/3 ML VIAL SC PRN ×2 (11:38→17:12)
[2020-07-13] MEDS: Polyethylene Glycol 3350 17 GM Packet PO SCH (20:36)
[2020-07-13] MEDS: Atorvastatin Calcium 40 MG TAB PO SCH (20:36)
[2020-07-14] MEDS: Furosemide 40 MG/4 ML VIAL SLOW IVP SCH ×2 (03:21→17:10)
[2020-07-14 05:21] LABS: Anion Gap 11 mmol/L (10-20); BUN (Urea Nitrogen) 17 mg/dL (8.4-25.7); Calc. Creatinine Clearance 89 mL/min (70-130); Calcium 9.5 mg/dL (7.8-10.44); Carbon Dioxide 30 mmol/L (22-29); Chloride 102 mmol/L (98-107); Glucose 135 mg/dL (70-105); Magnesium 1.8 mg/dL (1.6-2.6); Potassium 3.4 mmol/L (3.5-5.1); Sodium 140 mmol/L (136-145)
[2020-07-14] MEDS: Budesonide 0.5 MG/2 ML NEB NEB SCH ×2 (07:10→18:55)
[2020-07-14] MEDS ORDERED: Magnesium Sulfate 2 GM in Sodium Chloride 0.9% 100 ML IVPB SCH (07:30)
[2020-07-14] MEDS ORDERED: Magnesium 2 GM/50 ML 2 GM in Premix Bag 1 BAG IVPB SCH (07:30)
[2020-07-14] MEDS: Apixaban 5 MG TAB PO SCH ×2 (09:44→20:32)
[2020-07-14] MEDS: Senokot S 8.6-50 MG TAB PO SCH ×2 (09:44→20:32)
[2020-07-14] MEDS: Potassium Chloride 20 MEQ TAB PO SCH ×2 (09:45→17:11)
[2020-07-14] MEDS: Aspirin 81 mg Enteric Coated Tablet PO SCH (09:45)
[2020-07-14] MEDS: Metolazone 5 MG TAB PO SCH (09:45)
[2020-07-14] MEDS: Amiodarone 200 MG TAB PO SCH (09:45)
[2020-07-14] MEDS: Carvedilol 25 MG TAB PO SCH ×2 (09:45→17:11)
[2020-07-14] MEDS: Allopurinol 100 MG TAB PO SCH (09:45)
[2020-07-14] MEDS: HumaLOG 300 UNITS/3 ML VIAL SC PRN (17:09)
[2020-07-14] MEDS: Polyethylene Glycol 3350 17 GM Packet PO SCH (20:32)
[2020-07-14] MEDS: Atorvastatin Calcium 40 MG TAB PO SCH (20:32)
[2020-07-15] MEDS: Furosemide 40 MG/4 ML VIAL SLOW IVP SCH ×2 (03:44→16:14)
[2020-07-15 05:44] LABS: Anion Gap 15 mmol/L (10-20); BUN (Urea Nitrogen) 15 mg/dL (8.4-25.7); Calc. Creatinine Clearance 83 mL/min (70-130); Calcium 9.8 mg/dL (7.8-10.44); Carbon Dioxide 31 mmol/L (22-29); Chloride 100 mmol/L (98-107); Glucose 136 mg/dL (70-105); Potassium 3.5 mmol/L (3.5-5.1); Sodium 142 mmol/L (136-145)
[2020-07-15] MEDS ORDERED: Potassium Chloride 20 MEQ TAB PO SCH (06:00)
[2020-07-15] MEDS ORDERED: Magnesium 2 GM/50 ML 2 GM in Premix Bag 1 BAG IVPB SCH (06:00)
[2020-07-15] MEDS: Budesonide 0.5 MG/2 ML NEB NEB SCH (06:45)
[2020-07-15] MEDS: Aspirin 81 mg Enteric Coated Tablet PO SCH (10:05)
[2020-07-15] MEDS: Amiodarone 200 MG TAB PO SCH (10:05)
[2020-07-15] MEDS: Carvedilol 25 MG TAB PO SCH ×2 (10:06→16:14)
[2020-07-15] MEDS: Potassium Chloride 20 MEQ TAB PO SCH (10:06)
[2020-07-15] MEDS: Allopurinol 100 MG TAB PO SCH (10:06)
[2020-07-15] MEDS: Senokot S 8.6-50 MG TAB PO SCH ×2 (10:06→20:45)
[2020-07-15] MEDS: Apixaban 5 MG TAB PO SCH ×2 (10:06→20:45)
[2020-07-15] MEDS: HumaLOG 300 UNITS/3 ML VIAL SC PRN (11:39)
[2020-07-15] MEDS: Polyethylene Glycol 3350 17 GM Packet PO SCH (20:45)
[2020-07-15] MEDS: Atorvastatin Calcium 40 MG TAB PO SCH (20:45)
[2020-07-15] MEDS: Torsemide 20 MG TAB PO SCH (20:45)
[2020-07-16] MEDS: Carvedilol 25 MG TAB PO SCH (09:05)
[2020-07-16] MEDS: Amiodarone 200 MG TAB PO SCH (09:05)
[2020-07-16] MEDS: Apixaban 5 MG TAB PO SCH (09:05)
[2020-07-16] MEDS: Allopurinol 100 MG TAB PO SCH (09:05)
[2020-07-16] MEDS: Senokot S 8.6-50 MG TAB PO SCH (09:05)
[2020-07-16] MEDS: Torsemide 20 MG TAB PO SCH (09:05)
[2020-07-16] MEDS: Aspirin 81 mg Enteric Coated Tablet PO SCH (09:06)
[2020-07-16 10:16] VITALS: BP 149/94; TEMP 98.5
== END 2020-07-16 11:25 | DRG 291 ==
LOC: ERS 14:56 → IMCU/EMU 17:20 → 2NO 07-09 18:48 → IMCU/EMU 07-10 12:32 → 2NO 07-12 22:06
PROVIDERS: ADMIT Internal Medicine; ATTEND Internal Medicine
PROC: 5A09357 Assistance with Respiratory Ventilation, Less than 24 Consecutive Hours, Continuous Positive Airway Pressure (ICD-10-PCS; principal; 2020-07-05)
DX: I13.0 Hypertensive heart and chronic kidney disease with heart failure and stage 1 through stage 4 chronic kidney disease, or unspecified chronic kidney disease (principal); I50.43 Acute on chronic combined systolic (congestive) and diastolic (congestive) heart failure; J96.21 Acute and chronic respiratory failure with hypoxia; N17.9 Acute kidney failure, unspecified; I69.954 Hemiplegia and hemiparesis following unspecified cerebrovascular disease affecting left non-dominant side; N18.30 Chronic kidney disease, stage 3 unspecified; Z20.822 Contact with and (suspected) exposure to COVID-19; I25.10 Atherosclerotic heart disease of native coronary artery without angina pectoris; I48.0 Paroxysmal atrial fibrillation; M10.9 Gout, unspecified; G47.33 Obstructive sleep apnea (adult) (pediatric); D53.9 Nutritional anemia, unspecified; E11.22 Type 2 diabetes mellitus with diabetic chronic kidney disease; J45.909 Unspecified asthma, uncomplicated; E11.65 Type 2 diabetes mellitus with hyperglycemia; E78.2 Mixed hyperlipidemia; I42.9 Cardiomyopathy, unspecified; E66.01 Morbid (severe) obesity due to excess calories; E87.6 Hypokalemia; E83.42 Hypomagnesemia; Z99.81 Dependence on supplemental oxygen; Z68.39 Body mass index [BMI] 39.0-39.9, adult; Z79.82 Long term (current) use of aspirin; Z79.899 Other long term (current) drug therapy; Z79.01 Long term (current) use of anticoagulants; Z79.84 Long term (current) use of oral hypoglycemic drugs; Z95.810 Presence of automatic (implantable) cardiac defibrillator; Z98.890 Other specified postprocedural states; Z82.49 Family history of ischemic heart disease and other diseases of the circulatory system; Z87.891 Personal history of nicotine dependence
CPT/HCPCS: 0240U; 36415; 36416; 51701; 71045; 76770; 80048; 80053; 81001; 81003; 81015; 82805; 83735; 83880; 84484; 85025; 93005; 93306; 94640; 94660; 94760; 96374; 97139; J1815; J1940; J2920; J3475; J7620; J7626

== ENCOUNTER 2020-10-11 00:19 | Inpatient (IN) | payer OTHER ==
[2020-10-11] MEDS ORDERED: Acetaminophen 325 MG TAB PO PRN (03:26)
[2020-10-11] MEDS ORDERED: Ondansetron PF 4 MG/2 ML Vial IVP PRN (03:26)
[2020-10-11] MEDS ORDERED: Dextrose 50% Abboject 50 ML SYRINGE SLOW IVP PRN (03:27)
[2020-10-11] MEDS ORDERED: HumaLOG 300 UNITS/3 ML VIAL SC PRN ×2 (03:27)
[2020-10-11] MEDS ORDERED: Dextrose 5% in Water 1,000 ML IV PRN (03:27)
[2020-10-11 04:48] LABS: #Eosinphils 0.2 thou/uL (0.0-0.7); #Lymphocytes 0.8 thou/uL (1.20-3.40); #Monocytes 0.9 thou/uL (0.11-0.59); #Neutrophils 4.9 thou/uL (1.40-6.50); %Basophils 0.1 % (0.0-1.0); %Eosinophils 3.3 % (0.0-10.0); %Lymphocytes 12.1 % (21.0-51.0); %Monocytes 13.6 % (0.0-10.0); %Neutrophils 70.9 % (42.0-75.0); Hemoglobin 9.9 g/dL (14.0-18.0); Mean Corpuscular HGB CONC 29.3 g/dL (32.0-36.0); Mean Corpuscular Hemoglobin 24.1 pg (27.0-31.0); Mean Corpuscular Volume 82.2 fL (78.0-98.0); Mean Platelet Volume 9.7 fL (7.4-10.4); Platelet Count 236 thou/uL (130-400); RBC Distribution Width 16.8 % (11.5-14.5); Red Blood Cell (RBC) Count 4.13 mill/uL (4.70-6.10); White Blood Cell (WBC) Count 6.9 thou/uL (4.8-10.8)
[2020-10-11 05:02] LABS: Anion Gap 13 mmol/L (10-20); BUN (Urea Nitrogen) 36 mg/dL (8.4-25.7); Calc. Creatinine Clearance 0 mL/min (70-130); Calcium 9.1 mg/dL (7.8-10.44); Carbon Dioxide 27 mmol/L (22-29); Chloride 103 mmol/L (98-107); Glucose 145 mg/dL (70-105); Magnesium 2.4 mg/dL (1.6-2.6); Potassium 4.5 mmol/L (3.5-5.1); Sodium 138 mmol/L (136-145)
[2020-10-11 05:08] LABS: Troponin I 0.036 ng/mL (< 0.028)
[2020-10-11] MEDS: Furosemide 40 MG/4 ML VIAL SLOW IVP SCH ×2 (06:16→16:24)
[2020-10-11] MEDS ORDERED: Furosemide 20 MG/2 ML VIAL ONE ×2 (06:17→06:26)
[2020-10-11 08:09] LABS: Troponin I 0.036 ng/mL (< 0.028)
[2020-10-11] MEDS ORDERED: Furosemide 40 MG/4 ML VIAL ONE (16:15)
[2020-10-11 19:06] VITALS: BMI 43.3
[2020-10-12 04:48] LABS: #Eosinphils 0.2 thou/uL (0.0-0.7); #Lymphocytes 0.7 thou/uL (1.20-3.40); #Monocytes 0.8 thou/uL (0.11-0.59); #Neutrophils 4.6 thou/uL (1.40-6.50); %Eosinophils 3.5 % (0.0-10.0); %Lymphocytes 10.9 % (21.0-51.0); %Monocytes 12.1 % (0.0-10.0); %Neutrophils 73.4 % (42.0-75.0); Hemoglobin 8.9 g/dL (14.0-18.0); Mean Corpuscular HGB CONC 31.1 g/dL (32.0-36.0); Mean Corpuscular Hemoglobin 25.1 pg (27.0-31.0); Mean Corpuscular Volume 80.8 fL (78.0-98.0); Mean Platelet Volume 9.5 fL (7.4-10.4); Platelet Count 229 thou/uL (130-400); RBC Distribution Width 16.8 % (11.5-14.5); Red Blood Cell (RBC) Count 3.55 mill/uL (4.70-6.10); White Blood Cell (WBC) Count 6.3 thou/uL (4.8-10.8)
[2020-10-12 05:38] LABS: Anion Gap 13 mmol/L (10-20); BUN (Urea Nitrogen) 39 mg/dL (8.4-25.7); Calc. Creatinine Clearance 66 mL/min (70-130); Calcium 8.9 mg/dL (7.8-10.44); Carbon Dioxide 24 mmol/L (22-29); Chloride 104 mmol/L (98-107); Glucose 128 mg/dL (70-105); Magnesium 2.4 mg/dL (1.6-2.6); Potassium 4.1 mmol/L (3.5-5.1); Sodium 137 mmol/L (136-145)
[2020-10-12] MEDS: Furosemide 40 MG/4 ML VIAL SLOW IVP SCH ×2 (06:01→14:33)
[2020-10-12] MEDS ORDERED: Senokot S 8.6-50 MG TAB PO PRN (07:33)
[2020-10-12] MEDS ORDERED: hydrALAZINE 20 MG/ML VIAL SLOW IVP PRN (07:33)
[2020-10-12] MEDS ORDERED: Benzonatate 100 MG CAP PO PRN (07:33)
[2020-10-12] MEDS ORDERED: Artificial Tear Sol 15 ML BOT EA EYE PRN (07:33)
[2020-10-12] MEDS ORDERED: Cepastat Lozenges 1 LOZ PO PRN (07:33)
[2020-10-12] MEDS ORDERED: Sodium Chloride 0.65% Nasal 44 ML BOT EA NARE PRN (07:33)
[2020-10-12] MEDS ORDERED: Calcium Carbonate 500 MG ChewTAB PO PRN (07:33)
[2020-10-12] MEDS ORDERED: Ondansetron ODT 4 MG TAB PO PRN (07:33)
[2020-10-12] MEDS ORDERED: Hydrocerin (Eucerin) Cream 120 gm Jar TOP PRN (07:33)
[2020-10-12] MEDS ORDERED: Bisacodyl 5 MG TAB PO PRN (07:33)
[2020-10-12] MEDS ORDERED: GUAIFENESIN SF SOLN 200 MG/10 ML UDCUP PO PRN (07:33)
[2020-10-12] MEDS ORDERED: Loratadine 10 MG TAB PO PRN (07:33)
[2020-10-12] MEDS ORDERED: Loperamide HCl 2 MG CAP PO PRN (07:33)
[2020-10-12] MEDS ORDERED: Amiodarone 200 MG TAB PO SCH (09:00)
[2020-10-12] MEDS: Allopurinol 100 MG TAB PO SCH (09:21)
[2020-10-12] MEDS: Gabapentin 300 MG CAP PO SCH (09:21)
[2020-10-12] MEDS: Apixaban 5 MG TAB PO SCH ×2 (09:21→21:13)
[2020-10-12] MEDS: Aspirin 81 mg Enteric Coated Tablet PO SCH (09:21)
[2020-10-12] MEDS: Budesonide 0.5 MG/2 ML NEB NEB SCH (19:13)
[2020-10-12] MEDS: Atorvastatin Calcium 40 MG TAB PO SCH (21:13)
[2020-10-12] MEDS: Polyethylene Glycol 3350 17 GM Packet PO SCH (21:14)
[2020-10-12] MEDS: HYDROcodone/Acetaminophen 5/325 mg Tablet PO PRN (21:17)
[2020-10-13 04:55] LABS: #Eosinphils 0.3 thou/uL (0.0-0.7); #Lymphocytes 0.9 thou/uL (1.20-3.40); #Monocytes 0.9 thou/uL (0.11-0.59); #Neutrophils 4.2 thou/uL (1.40-6.50); %Basophils 0.2 % (0.0-1.0); %Eosinophils 4.5 % (0.0-10.0); %Lymphocytes 14.1 % (21.0-51.0); %Monocytes 13.8 % (0.0-10.0); %Neutrophils 67.4 % (42.0-75.0); Hemoglobin 8.9 g/dL (14.0-18.0); Mean Corpuscular HGB CONC 30.1 g/dL (32.0-36.0); Mean Corpuscular Hemoglobin 24.5 pg (27.0-31.0); Mean Corpuscular Volume 81.3 fL (78.0-98.0); Mean Platelet Volume 9.5 fL (7.4-10.4); Platelet Count 215 thou/uL (130-400); RBC Distribution Width 16.9 % (11.5-14.5); Red Blood Cell (RBC) Count 3.64 mill/uL (4.70-6.10); White Blood Cell (WBC) Count 6.2 thou/uL (4.8-10.8)
[2020-10-13 05:22] LABS: ALT (SGPT) 37 U/L (8-55); AST (SGOT) 20 U/L (5-34); Albumin 3.2 g/dL (3.5-5.0); Alkaline Phosphatase 129 U/L (40-110); Anion Gap 11 mmol/L (10-20); BUN (Urea Nitrogen) 36 mg/dL (8.4-25.7); Bilirubin, Total 0.7 mg/dL (0.2-1.2); Calc. Creatinine Clearance 73 mL/min (70-130); Calcium 8.8 mg/dL (7.8-10.44); Carbon Dioxide 27 mmol/L (22-29); Chloride 105 mmol/L (98-107); Globulin 3.4 g/dL (2.4-3.5); Glucose 123 mg/dL (70-105); Magnesium 2.3 mg/dL (1.6-2.6); Protein, Total 6.6 g/dL (6.0-8.3); Sodium 139 mmol/L (136-145)
[2020-10-13] MEDS: Furosemide 40 MG/4 ML VIAL SLOW IVP SCH ×2 (06:17→14:14)
[2020-10-13] MEDS: Budesonide 0.5 MG/2 ML NEB NEB SCH ×2 (07:57→18:00)
[2020-10-13 08:13] LABS: Bacteria/HPF None Seen HPF (None Seen); Bilirubin Negative (Negative); Blood, Urine Trace (Negative); Clarity Clear (Clear); Glucose, Urine (Dipstick) Normal (Negative); Ketone, Urine Negative (Negative); Leukocyte Negative Leu/uL (Negative); Nitrite Negative (Negative); Protein, Urine (Dipstick) 70 mg/dL (Neg-Trace); RBC/HPF 0-3 HPF (0-3); Squamous Epithelial 0-3 HPF (0-3); Urobilinogen Normal mg/dL (Less than 2); WBC/HPF 0-3 HPF (0-3)
[2020-10-13] MEDS: Apixaban 5 MG TAB PO SCH ×2 (09:19→20:17)
[2020-10-13] MEDS: Aspirin 81 mg Enteric Coated Tablet PO SCH (09:19)
[2020-10-13] MEDS: Allopurinol 100 MG TAB PO SCH (09:19)
[2020-10-13] MEDS: Gabapentin 300 MG CAP PO SCH (09:19)
[2020-10-13] MEDS: HYDROcodone/Acetaminophen 5/325 mg Tablet PO PRN ×2 (09:19→20:17)
[2020-10-13] MEDS ORDERED: Metolazone 5 MG TAB PO SCH (11:30)
[2020-10-13] MEDS: Atorvastatin Calcium 40 MG TAB PO SCH (20:17)
[2020-10-13] MEDS: Polyethylene Glycol 3350 17 GM Packet PO SCH (20:18)
[2020-10-14] MEDS: Furosemide 40 MG/4 ML VIAL SLOW IVP SCH ×2 (04:53→14:43)
[2020-10-14 05:08] LABS: Anion Gap 12 mmol/L (10-20); BUN (Urea Nitrogen) 30 mg/dL (8.4-25.7); Calc. Creatinine Clearance 80 mL/min (70-130); Calcium 9.2 mg/dL (7.8-10.44); Carbon Dioxide 28 mmol/L (22-29); Chloride 104 mmol/L (98-107); Glucose 156 mg/dL (70-105); Magnesium 2.2 mg/dL (1.6-2.6); Potassium 4.4 mmol/L (3.5-5.1); Sodium 140 mmol/L (136-145)
[2020-10-14] MEDS: Budesonide 0.5 MG/2 ML NEB NEB SCH (07:38)
[2020-10-14] MEDS ORDERED: Metolazone 5 MG TAB PO SCH (08:30)
[2020-10-14] MEDS: Apixaban 5 MG TAB PO SCH (08:39)
[2020-10-14] MEDS: Allopurinol 100 MG TAB PO SCH (08:39)
[2020-10-14] MEDS: Gabapentin 300 MG CAP PO SCH (08:39)
[2020-10-14] MEDS: Aspirin 81 mg Enteric Coated Tablet PO SCH (08:40)
[2020-10-14 15:59] VITALS: BP 145/88; TEMP 98.7
== END 2020-10-14 18:25 | DRG 291 ==
LOC: ERS 00:19 → ERHOLD 03:06 → 2NO 03:08
PROVIDERS: ADMIT Internal Medicine; ATTEND Internal Medicine
DX: I13.0 Hypertensive heart and chronic kidney disease with heart failure and stage 1 through stage 4 chronic kidney disease, or unspecified chronic kidney disease (principal); I50.43 Acute on chronic combined systolic (congestive) and diastolic (congestive) heart failure; J96.11 Chronic respiratory failure with hypoxia; N17.9 Acute kidney failure, unspecified; Z68.41 Body mass index [BMI] 40.0-44.9, adult; I24.8 Other forms of acute ischemic heart disease; N18.30 Chronic kidney disease, stage 3 unspecified; E11.22 Type 2 diabetes mellitus with diabetic chronic kidney disease; I25.10 Atherosclerotic heart disease of native coronary artery without angina pectoris; E11.65 Type 2 diabetes mellitus with hyperglycemia; J45.909 Unspecified asthma, uncomplicated; I48.0 Paroxysmal atrial fibrillation; E66.9 Obesity, unspecified; G47.30 Sleep apnea, unspecified; E78.2 Mixed hyperlipidemia; R00.1 Bradycardia, unspecified; D64.9 Anemia, unspecified; Z99.81 Dependence on supplemental oxygen; Z86.73 Personal history of transient ischemic attack (TIA), and cerebral infarction without residual deficits; Z79.82 Long term (current) use of aspirin; Z79.899 Other long term (current) drug therapy; Z95.810 Presence of automatic (implantable) cardiac defibrillator
CPT/HCPCS: 36415; 36416; 80048; 80053; 81003; 81015; 83735; 84100; 84484; 85025; 93005; 94640; 99285; J1815; J1940; J7620; J7626

== ENCOUNTER 2021-02-04 21:08 | Inpatient (IN) | payer OTHER ==
[2021-02-04 22:50] VITALS: BMI 38.2
[2021-02-05] MEDS ORDERED: Acetaminophen 325 MG TAB PO PRN (02:03)
[2021-02-05] MEDS ORDERED: Ondansetron PF 4 MG/2 ML Vial IVP PRN (02:03)
[2021-02-05 04:59] LABS: Anion Gap 15 mmol/L (10-20); BUN (Urea Nitrogen) 43 mg/dL (8.4-25.7); Calc. Creatinine Clearance 80 mL/min (70-130); Carbon Dioxide 23 mmol/L (22-29); Chloride 107 mmol/L (98-107); Glucose 111 mg/dL (70-105); Potassium 4.1 mmol/L (3.5-5.1); Sodium 141 mmol/L (136-145)
[2021-02-05 05:03] LABS: Troponin I 0.047 ng/mL (< 0.028)
[2021-02-05 05:24] LABS: #Eosinphils 0.1 thou/uL (0.0-0.7); #Monocytes 0.5 thou/uL (0.11-0.59); %Basophils 0.7 % (0.0-1.0); %Eosinophils 2.1 % (0.0-10.0); %Monocytes 10.8 % (0.0-10.0); %Neutrophils 64.4 % (42.0-75.0); Anisocytosis SLIGHT = 6-15 cells (100X) (0-5/hpf); Hemoglobin 10.2 g/dL (14.0-18.0); Hypochromia SLIGHT = 6-15 cells (100X) (0-5/hpf); MDiff Complete? YES; Mean Corpuscular HGB CONC 30.9 g/dL (32.0-36.0); Mean Corpuscular Hemoglobin 24.3 pg (27.0-31.0); Mean Corpuscular Volume 78.4 fL (78.0-98.0); Mean Platelet Volume 6.1 fL (7.4-10.4); Microcytosis SLIGHT = 6-15 cells (100X) (0-5/hpf); Platelet Count 136 thou/uL (130-400); Red Blood Cell (RBC) Count 4.19 mill/uL (4.70-6.10); White Blood Cell (WBC) Count 4.6 thou/uL (4.8-10.8)
[2021-02-05] MEDS ORDERED: Furosemide 40 MG/4 ML VIAL SLOW IVP SCH ×2 (06:00→09:22)
[2021-02-05 08:00] LABS: Troponin I 0.069 ng/mL (< 0.028)
[2021-02-05] MEDS ORDERED: FLU VACC QS2021-22(6MOS UP)/PF 60 MCG/0.5 ML SYRINGE IM ONE (09:00)
[2021-02-05] MEDS ORDERED: HumaLOG 300 UNITS/3 ML VIAL SC PRN (09:10)
[2021-02-05] MEDS ORDERED: Dextrose 5% in Water 1,000 ML IV PRN (09:10)
[2021-02-05] MEDS ORDERED: Dextrose 50% Abboject 50 ML SYRINGE SLOW IVP PRN (09:10)
[2021-02-05] MEDS ORDERED: Furosemide 100 MG/10 ML VIAL SLOW IVP SCH (09:45)
[2021-02-05 10:08] LABS: Magnesium 2.2 mg/dL (1.6-2.6); Phosphorus 3.3 mg/dL (2.3-4.7)
[2021-02-05] MEDS: Apixaban 5 MG TAB PO SCH ×2 (10:27→21:04)
[2021-02-05] MEDS: Gabapentin 100 MG CAP PO SCH ×2 (10:27→21:02)
[2021-02-05] MEDS: Carvedilol 25 MG TAB PO SCH ×2 (10:27→21:04)
[2021-02-05 10:52] LABS: Base Excess (BEa) 0.8 mEq/L (-2.0 to +3.0); CO2 Tension 44.1 mmHg (35.0-45.0); Calcium, Ionized (arterial) 1.21 mmol/L (1.12-1.30); Carboxyhemoglobin (COHb) 1.2 gm% (0.0-3.0); Hemoglobin (Hb) 10.7 g/dL (14.0-18.0); O2 Tension (PaO2), arterial 86.6 mmHg (80.0-100.0); Potassium - ABG Lab 4.28 mmol/L (3.70-5.30); pH, Arterial 7.39 (7.35-7.45)
[2021-02-05 10:58] LABS: CKMB 3.3 ng/mL (0-6.6)
[2021-02-05 11:18] LABS: Amphetamine Not Detected (NotDetected); Barbiturates Screen Not Detected (NotDetected); Benzodiazepine Screen Not Detected (NotDetected); Cocaine Metabolite Screen Not Detected (NotDetected); Methadone Not Detected (NotDetected); Methamphetamine Not Detected (NotDetected); Opiate Screen Not Detected (NotDetected); Oxycodone Screen Not Detected (NotDetected); Phencyclidine (PCP) Not Detected (NotDetected); THC/Cannabinoid Screen Not Detected (NotDetected); Tricyclic Screen Not Detected (NotDetected)
[2021-02-05 13:37] LABS: ALV-art Gradient 57.915 mmHg (0-20); Puncture Site RRA
[2021-02-05] MEDS: Furosemide 100 MG/10 ML VIAL SLOW IVP SCH (15:08)
[2021-02-05] MEDS ORDERED: Gabapentin 300 MG CAP PO SCH ×2 (21:00)
[2021-02-05] MEDS: Atorvastatin Calcium 40 MG TAB PO SCH (21:04)
[2021-02-06 05:15] LABS: Hemoglobin A1c 6.6 % (4.0-6.0)
[2021-02-06 05:23] LABS: #Eosinphils 0.1 thou/uL (0.0-0.7); #Lymphocytes 1.1 thou/uL (1.20-3.40); #Monocytes 0.6 thou/uL (0.11-0.59); #Neutrophils 4.1 thou/uL (1.40-6.50); %Basophils 0.2 % (0.0-1.0); %Eosinophils 2.1 % (0.0-10.0); %Lymphocytes 19.1 % (21.0-51.0); %Monocytes 9.5 % (0.0-10.0); %Neutrophils 69.1 % (42.0-75.0); Hemoglobin 9.4 g/dL (14.0-18.0); Mean Corpuscular HGB CONC 30.8 g/dL (32.0-36.0); Mean Corpuscular Hemoglobin 23.9 pg (27.0-31.0); Mean Corpuscular Volume 77.8 fL (78.0-98.0); Mean Platelet Volume 7.1 fL (7.4-10.4); Platelet Count 135 thou/uL (130-400); RBC Distribution Width 21.8 % (11.5-14.5); Red Blood Cell (RBC) Count 3.93 mill/uL (4.70-6.10); White Blood Cell (WBC) Count 5.9 thou/uL (4.8-10.8)
[2021-02-06 05:31] LABS: ALT (SGPT) 7 U/L (8-55); AST (SGOT) 14 U/L (5-34); Albumin 3.4 g/dL (3.5-5.0); Alkaline Phosphatase 137 U/L (40-110); Anion Gap 12 mmol/L (10-20); BUN (Urea Nitrogen) 46 mg/dL (8.4-25.7); Bilirubin, Total 1.9 mg/dL (0.2-1.2); Calc. Creatinine Clearance 74 mL/min (70-130); Calcium 9.5 mg/dL (7.8-10.44); Carbon Dioxide 26 mmol/L (22-29); Chloride 106 mmol/L (98-107); Globulin 3.5 g/dL (2.4-3.5); Glucose 162 mg/dL (70-105); Potassium 3.7 mmol/L (3.5-5.1); Protein, Total 6.9 g/dL (6.0-8.3); Sodium 140 mmol/L (136-145)
[2021-02-06] MEDS: Furosemide 100 MG/10 ML VIAL SLOW IVP SCH ×2 (06:58→14:55)
[2021-02-06] MEDS: Gabapentin 100 MG CAP PO SCH ×2 (08:41→21:46)
[2021-02-06] MEDS: Carvedilol 25 MG TAB PO SCH ×2 (08:43→21:45)
[2021-02-06] MEDS: Apixaban 5 MG TAB PO SCH ×2 (08:43→21:45)
[2021-02-06 10:38] LABS: Iron 34 ug/dL (65-175); Iron Binding Capacity, Total 338 mcg/dL (261-462)
[2021-02-06] MEDS: Atorvastatin Calcium 40 MG TAB PO SCH (21:44)
[2021-02-07 05:16] LABS: #Eosinphils 0.1 thou/uL (0.0-0.7); #Lymphocytes 0.8 thou/uL (1.20-3.40); #Monocytes 0.6 thou/uL (0.11-0.59); #Neutrophils 3.7 thou/uL (1.40-6.50); %Basophils 0.4 % (0.0-1.0); %Eosinophils 2.5 % (0.0-10.0); %Lymphocytes 15.2 % (21.0-51.0); %Neutrophils 69.9 % (42.0-75.0); Hemoglobin 9.3 g/dL (14.0-18.0); Mean Corpuscular Hemoglobin 23.6 pg (27.0-31.0); Mean Corpuscular Volume 78.4 fL (78.0-98.0); Mean Platelet Volume 11.2 fL (7.4-10.4); Platelet Count 131 thou/uL (130-400); RBC Distribution Width 21.9 % (11.5-14.5); Red Blood Cell (RBC) Count 3.95 mill/uL (4.70-6.10); White Blood Cell (WBC) Count 5.2 thou/uL (4.8-10.8)
[2021-02-07 05:30] LABS: ALT (SGPT) 7 U/L (8-55); AST (SGOT) 13 U/L (5-34); Albumin 3.4 g/dL (3.5-5.0); Alkaline Phosphatase 137 U/L (40-110); Anion Gap 12 mmol/L (10-20); BUN (Urea Nitrogen) 41 mg/dL (8.4-25.7); Bilirubin, Total 1.7 mg/dL (0.2-1.2); Calc. Creatinine Clearance 72 mL/min (70-130); Calcium 9.2 mg/dL (7.8-10.44); Carbon Dioxide 27 mmol/L (22-29); Chloride 107 mmol/L (98-107); Globulin 3.4 g/dL (2.4-3.5); Glucose 143 mg/dL (70-105); Potassium 3.6 mmol/L (3.5-5.1); Protein, Total 6.8 g/dL (6.0-8.3); Sodium 142 mmol/L (136-145)
[2021-02-07] MEDS: Furosemide 100 MG/10 ML VIAL SLOW IVP SCH ×2 (05:45→14:47)
[2021-02-07] MEDS: Carvedilol 25 MG TAB PO SCH (08:55)
[2021-02-07] MEDS: Gabapentin 100 MG CAP PO SCH (08:56)
[2021-02-07] MEDS: Apixaban 5 MG TAB PO SCH (08:57)
[2021-02-07 10:04] LABS: ALT (SGPT) 9 U/L (8-55); AST (SGOT) 14 U/L (5-34); Albumin 3.7 g/dL (3.5-5.0); Alkaline Phosphatase 150 U/L (40-110); Anion Gap 13 mmol/L (10-20); BUN (Urea Nitrogen) 39 mg/dL (8.4-25.7); Bilirubin, Total 2.1 mg/dL (0.2-1.2); Calc. Creatinine Clearance 69 mL/min (70-130); Calcium 9.5 mg/dL (7.8-10.44); Carbon Dioxide 27 mmol/L (22-29); Chloride 105 mmol/L (98-107); Globulin 3.9 g/dL (2.4-3.5); Glucose 180 mg/dL (70-105); Potassium 3.7 mmol/L (3.5-5.1); Protein, Total 7.6 g/dL (6.0-8.3); Sodium 141 mmol/L (136-145)
[2021-02-07 12:28] VITALS: BP 132/94; TEMP 97.9
[2021-02-07 15:31] LABS: ALT (SGPT) 9 U/L (8-55); AST (SGOT) 15 U/L (5-34); Albumin 3.5 g/dL (3.5-5.0); Alkaline Phosphatase 148 U/L (40-110); Anion Gap 13 mmol/L (10-20); BUN (Urea Nitrogen) 38 mg/dL (8.4-25.7); Bilirubin, Total 1.7 mg/dL (0.2-1.2); Calc. Creatinine Clearance 68 mL/min (70-130); Calcium 9.3 mg/dL (7.8-10.44); Carbon Dioxide 28 mmol/L (22-29); Chloride 105 mmol/L (98-107); Globulin 3.7 g/dL (2.4-3.5); Glucose 201 mg/dL (70-105); Potassium 3.8 mmol/L (3.5-5.1); Protein, Total 7.2 g/dL (6.0-8.3); Sodium 142 mmol/L (136-145)
== END 2021-02-07 16:00 | DRG 291 ==
LOC: 2NO 22:37
PROVIDERS: ADMIT Internal Medicine; ATTEND Family Medicine
DX: I13.0 Hypertensive heart and chronic kidney disease with heart failure and stage 1 through stage 4 chronic kidney disease, or unspecified chronic kidney disease (principal); J96.21 Acute and chronic respiratory failure with hypoxia; I50.33 Acute on chronic diastolic (congestive) heart failure; I48.20 Chronic atrial fibrillation, unspecified; N17.9 Acute kidney failure, unspecified; G93.40 Encephalopathy, unspecified; Z20.822 Contact with and (suspected) exposure to COVID-19; I25.10 Atherosclerotic heart disease of native coronary artery without angina pectoris; J45.909 Unspecified asthma, uncomplicated; N18.30 Chronic kidney disease, stage 3 unspecified; E11.22 Type 2 diabetes mellitus with diabetic chronic kidney disease; D63.1 Anemia in chronic kidney disease; E11.65 Type 2 diabetes mellitus with hyperglycemia; G47.33 Obstructive sleep apnea (adult) (pediatric); E66.9 Obesity, unspecified; E78.5 Hyperlipidemia, unspecified; Z99.81 Dependence on supplemental oxygen; Z86.73 Personal history of transient ischemic attack (TIA), and cerebral infarction without residual deficits; Z95.810 Presence of automatic (implantable) cardiac defibrillator; Z79.4 Long term (current) use of insulin; Z79.82 Long term (current) use of aspirin; Z79.01 Long term (current) use of anticoagulants; Z79.899 Other long term (current) drug therapy; Z68.36 Body mass index [BMI] 36.0-36.9, adult
CPT/HCPCS: 36415; 36416; 36600; 80048; 80053; 80306; 82140; 82553; 82805; 83036; 83540; 83550; 83735; 84100; 84145; 84443; 84484; 85025; 93306; 94640; 97139; J1940; J7620